=== PATIENT | male | born 1975 | race Caucasian/White ===

== ENCOUNTER 2024-09-30 13:28 | Emergency (ER) | payer OTHER, SELFPAY ==
--- NOTE | ~2024-09-30 | XR_ITS ---
EXAMINATION: XR knee LT min 4V DATE: 09/30/2024 14:42 INDICATION: Left knee pain and swelling post twisting injury TECHNIQUE: Anteroposterior, 2 oblique and crosstable lateral views of the left knee were obtained COMPARISON: None. FINDINGS: Alignment is normal. No fracture. Marginal osteophytes in all 3 compartments of the knee consistent with tricompartmental osteoarthritis. Joint spaces appear relatively preserved although this could be underestimated on nonweightbearing imaging. No joint effusion. Soft tissues are unremarkable. IMPRESSION: 1. Mild tricompartmental osteoarthritis of the left knee. No joint effusion or acute osseous abnormal ity. Reviewed, dictated and finalized at location B. IMPRESSION: 1. Mild tricompartmental osteoarthritis of the left knee. No joint effusion or acute osseous abnormality.
[2024-09-30 13:45] VITALS: BP 131/69; PULSE 64; RESP 16; TEMP 37.2; O2SAT 99
--- NOTE | 2024-09-30 14:07 | ED_ITS ---
HPI - Extremity Injury (Lower) General Chief Complaint: Extremity Injury, Lower Stated Complaint: Left Leg Pain Time Seen by Provider: 09/30/24 14:07 Source: patient Mode of arrival: ambulatory Limitations: no limitations History of Present Illness HPI Narrative: 49 yo M presents with pain and swelling to L knee. Was helping a friend carry a large recliner and states L knee twisted. Ambulatory with slight limp. States pain radiates into calf. distal NV intact. All systems reviewed and negative except as noted above. Related Data Home Medications ?Medication ?Instructions ?Recorded ?Confirmed ?Last Taken ?Type famotidine 40 mg tablet mg 09/30/24 Unknown History losartan 100 tablet 09/30/24 Unknown History mg-hydrochlorothiazide 25 mg tablet sertraline 50 mg tablet mg 09/30/24 Unknown History Allergies Allergy/AdvReac Type Severity Reaction Status Date / Time No Known Allergies Allergy Mild Unverified 10/26/08 15:08 Review of Systems Review of Systems: CONSTITUTIONAL: Denies fever, chills, or sweats. EYES: Denies visual changes, redness, or discharge. ENT: Denies rhinorrhea, congestion, sore throat, or otalgia. CARDIOVASCULAR: Denies chest pain, palpitations, or edema. RESPIRATORY: Denies cough or dyspnea. GASTROINTESTINAL: Denies abdominal pain, nausea, vomiting, or diarrhea. GENITOURINARY: Denies dysuria or hematuria. SKIN: Denies rash or itching. MUSCULOSKELETAL: Denies back pain or myalgia. Reports pain and swelling to left knee NEUROLOGIC: Denies headache, numbness, or weakness. PSYCHIATRIC: Denies anxiety or depression. All other systems reviewed are negative, except as documented in HPI. PMFSH Comments At time of signature, agree with nursing past medical, surgical, social and family history. There is no relevant family history pertinent to the presenting complaint. Exam Narrative: GENERAL: This is a well-nourished, well-developed patient, in no apparent distress. HEAD: normocephalic, atraumatic. EYES: PERRL. Sclera clear/white. Vision is grossly intact. EARS: External ears normal NOSE: External nose normal NECK: Neck supple, non-tender without lymphadenopathy, masses or thyromegaly. CARDIOVASCULAR: Regular rate and rhythm without murmurs, gallops, or rubs. RESPIRATORY: Clear to auscultation. Breath sounds equal bilaterally. No wheezes, rales, or rhonchi. SKIN: warm, Dry, intact with no suspicious lesions or rash, good texture and turgor. NEURO: awake, alert, and oriented to person, place and time. There were no obvious focal neurologic abnormalities. EXTREMITIES: generalized tenderness to anterior and posterior aspect L knee with mild swelling. negative anterior and posterior drawer testing. normal ROM Course Course Level of Care: Express Care Visit Vital Signs Vital signs: Vital Signs Temperature 37.2 C 09/30/24 13:45 Pulse Rate 64 09/30/24 13:45 Respiratory Rate 16 09/30/24 13:45 Blood Pressure 131/69 09/30/24 13:45 Pulse Oximetry 99 09/30/24 13:45 Oxygen Delivery Room Air 09/30/24 13:45 Temperature 37.2 C 09/30/24 13:45 Pulse Rate 64 09/30/24 13:45 Respiratory Rate 16 09/30/24 13:45 Blood Pressure 131/69 09/30/24 13:45 Pulse Oximetry 99 09/30/24 13:45 Oxygen Delivery Room Air 09/30/24 13:45 reviewed MDM - Extremity Injury (Lower) MDM Narrative Medical decision making narrative: x-ray knee is normal. Discussed results with patient. Recommend ibuprofen, rest, ice. Will see his doctor if not improving. Imaging Data My impression: Agree with radiologist Radiologist's impression: EXAMINATION: XR knee LT min 4V DATE: 09/30/2024 14:42 INDICATION: Left knee pain and swelling post twisting injury TECHNIQUE: Anteroposterior, 2 oblique and crosstable lateral views of the left knee were obtained COMPARISON: None. FINDINGS: Alignment is normal. No fracture. Marginal osteophytes in all 3 compartments of the knee consistent with tricompartmental osteoarthritis. Joint spaces appear relatively preserved although this could be underestimated on nonweightbearing imaging. No joint effusion. Soft tissues are unremarkable. IMPRESSION: 1. Mild tricompartmental osteoarthritis of the left knee. No joint effusion or acute osseous abnormality. Discharge Plan Discharge Clinical Impression: Left knee sprain Qualifiers: Encounter type: initial encounter Patient Disposition: Home Condition: Stable Instructions: Knee Sprain (ED) Additional Instructions: the x-ray of your left knee showed mild arthritis. There was no fracture. Take ibuprofen or Tylenol every 6-8 hours as needed for pain. Elevate when at rest. Follow-up with primary care physician if not improving. Patient Language: Israeli Prescriptions: No Action famotidine 40 mg tablet losartan-hydrochlorothiazide 100-25 mg tablet sertraline 50 mg tablet Follow-up/Referrals: Mary Aly [Other] Time of Disposition: 15:09
--- OUTSIDE RECORDS SUMMARY | 2024-09-30 14:32 | XMS_ITS | Encounter Summary ---
Author Organization [facility] Address [address] 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 Unavailable Unavailab le Reason for Visit * Reason Comments Medication Refill Encounter Details Date Type Department Care Team (Late st Contact Info) Description 06/25/2021 Refill [facility] - Primary Care - [place] [address] [place] [address] Gloria Martinez MD [address] [place] [address] Medication Refill Social History Tobacco Use Types Packs/Day Years Used Date Smoking Tobacco: Former Cigarettes 1 5 Smokeless Tobacco: Current Chew Alcohol Use Standard Drinks/Week Comments No 0 (1 standard drink = 0.6 oz pur e alcohol) PHQ-2 Answer Date Recorded Total Score - Questions 1-9 0 10/2019 Sexually Active Control Partners Comments Not Currently Sex and Gender Information Value Date Recorded Sex Assigned at Not on file Legal Sex Male 8:58 PM CDT Gender Identity Not on file Sexual Orientation Not on file documented as of this encounter Miscellaneous Notes * Telephone Encounter - Blu, Milana L, RN - 06/25/2021 7:53 AM ALLERGY SPECIALIST Medication failed the protocol, provider to review and approve the medication order if appropriate. Requested Prescriptions Pending Prescriptions Disp Refills Topiramate 50 MG Tablet [Pharmacy Med Name: TOPIRAMATE 50MG TABLETS] 180 Tablet 3 Sig: TAKE 1 TABLET BY MOUTH TWICE DAILY Not Delegated - Anticonvulsants Excluding Benzodiazepines Protocol Failed - 06/25/2021 5:48 AM Failed - This refill cannot be delegated Passed - Visit with relevant provider in past 12 months or upcoming 90 days Recent Visits Date Type Provider Dept 04/30/21 Office Visit Gloria Martinez MD [facility] 12/01/20 Office Visit Gloria Martinez MD [facility] 09/21/20 Office Visit Gloria Martinez MD [facility] [place] Showing recent visits within past 365 days and meeting all other requirements Future Appointments No visits were found meeting these conditions. Showing future appointments within next 90 days and meeting all other requirements RGY SPECIALIST documented in this encounter Plan of Treatment Not on file documented as of this encounter Visit Diagnoses Diagnosis Obesity, Class III, BMI 40-49.9 (morbid obesity) (HCC) Morbid obesity documented in this encounter Additional Health Concerns Assessment Noted Time PHQ-9 Depression Total Score: 0 03/23/20 20 9:00 AM ALLERGY SPECIALIST documented as of this encounter Care Teams Account Installer Relationship Specialty Start Date End Date Gloria Martinez MD [address] [place] [address] PCP - General Family Medicine 07/09/18 05/29/22 Jen Malave APRN, LEAD DATA ENTRY OPERATOR [address] [place] [address] PCP - General Advanced Practice Nurse 05/30/22 Provider, None [place] PCP - General 11/10/22 08/09/23 Mary Aly, POLISHER AND BUFFER, LEAD DATA ENTRY OPERATOR [address] [place] [address] PCP - General Certified Nurse Practitioner 08/10/23 Holly Grimes, [place]ART[place] Process Specialist Drill Doctor 09/06/24 09/11/24 documented as of this encounter
--- OUTSIDE RECORDS SUMMARY | 2024-09-30 14:32 | XMS_ITS | Encounter Summary ---
Author Organization [facility] Address [address] [place] [address] Phone Care Team Providers Care Supervisor Cook House Name Role Phone Gloria Martinez MD Primary Care Provider [phone] Jen Malave APRN, [facility] Primary Care Provider Provider, None Primary Care Provider UnavailMary Little APRN, [facility] Primary Care Provider + [phone] Holly Grimes NOVELTY WORKER Unavailable Unavailab le Reason for Visit * Reason Comments Medication Refill Encounter Details Date Type Department Care Team (Late st Contact Info) Description 07/24/2021 Refill [facility] - Family Medicine [facility] [address] [place] [address] Gloria Martinez MD [address] [place] [address] Medication Refill Social History Tobacco Use Types [...] encounter Miscellaneous Notes * Telephone Encounter - Saundra Curtis RN - 07/26/2021 8:56 AM CDT Medication failed the protocol, provider to review and approve the medication order if appropriate. Requested Prescriptions Pending Prescriptions Disp Refills sertraline (ZOLOFT) 50 MG Tablet [Pharmacy Med Name: SERTRALINE 50MG TABLETS] 90 Tablet 0 Sig: TAKE 1 TABLET BY MOUTH DAILY SSRI (6 Month Refill Only) Protocol Failed - 07/24/2021 9:20 AM Failed - Has an encounter in the past 6 months with a depression, anxiety, adjustment disorder, OCD, or PTSD visit diagnosis Passed - Visit with relevant provider in past 6 months or upcoming 90 days Recent Visits Date Type Provider Dept 04/30/21 Office Visit Gloria Martinez MD [facility] Showing recent visits within past 182 days and meeting all other requirements Future Appointments No visits were found meeting these conditions. Showing future appointments within next 90 days and meeting all other requirements Passed - Patient has established therapy with SSRI for at least 6 months documented in this encounter Plan of Treatment Not on file documented as of this encounter Visit Diagnoses Diagnosis Depression, unspecified depression type documented in this encounter Additional Health Concerns Assessment Noted Time PHQ-9 Depression Total Score: 0 03/23/20 20 9:00 AM WOOL BROKER documented as of this encounter Care Teams Supervisor Cook House Relationship Specialty Start Date End Date Gloria Martinez MD [address] [place] [address] PCP - General Family Medicine 07/09/18 05/29/22 Jen Malave, WALKING DRAGLINE OPERATOR, BUS GIRL [address] [place] [address] PCP - General Advanced Practice Nurse 05/30/22 Provider, None [place] PCP - General 11/10/22 08/09/23 Mary Aly WALKING DRAGLINE OPERATOR, [employer] GIR[employer] [address] [place] [address] PCP - General Certified Nurse Practitioner 08/10/23 Holly Grimes LSW [place] Mill Washer Assembler [employer] Furniture 09/06/24 09/11/24 documented as of this encounter
--- OUTSIDE RECORDS SUMMARY | 2024-09-30 14:32 | XMS_ITS | Clinical Summary ---
Author Organization [facility] Address [address] [place] [address] Phone Care Team Providers Care Project Specialist Name Role Phone Mary Aly Ariella LOPEZ, GLASS BELT SANDER Primary Care Provider [phone] Allergies No known active allergies Medications Cyanocobalamin (VITAMIN B-12) 5000 MCG TABLET DISPERSIBLEIndi cations:Vitamin B12 deficiency Take 1 Tab by mouth daily. 90 Tab 1 08/29/19 19 Active Additional Information Patient not taking.Reported on 09/05/2024 Aspirin 81 MG TabletIndicatio ns:Obesity, Class III, BMI 40-49.9 (morbid obesity) (HCC) Take 1 Tab by mouth daily. 100 Tab 1 08/05/19 20 Active Additional Information Patient not taking.Reported on 09/05/2024 Niacin (VITAMIN B-3 PO) Take by mouth daily. One tab nightly. Active Cholecalciferol (Vitamin D-3 Super Strength) 50 mcg Tablet Take by mouth. A ctive Topiramate 50 MG TabletIndicatio ns:Obesity, Class III, BMI 40-49.9 (morbid obesity) (HCC) TAKE ONE TABLET BY MOUTH TWICE DAILY 180 Tablet 07/17/19 25 Active sertraline (ZOLOFT) 50 MG TabletIndicatio ns:Depression, unspecified depression type TAKE 1 TABLET BY MOUTH DAILY. 90 Tablet 07/17/19 25 Active losartan potassium-hydro chlorothiazide (HYZAAR) 100-25 MG Tablet TAKE 1 TABLET BY MOUTH DAILY. 90 Tablet 07/18/19 25 Active albuterol 108 (90 Base) MCG/ACT Aerosol Solution take 2 Puffs by inhalation every 6 hours as needed for Wheezing. 18 g 09/04/19 25 Active famotidine (PEPCID) 40 MG Tablet Take 1 Tablet by mouth every evening. 90 Tablet 2 09/06/19 25 Active tiotropium (Spiriva HandiHaler) 18 MCG CapsuleIndicati ons:Chronic bronchitis, unspecified chronic bronchitis type (HCC) take 1 Puff by inhalation daily. 90 Capsule 1 09/06/19 25 Active famotidine (PEPCID) 40 MG Tablet Take 1 Tablet by mouth every evening. 90 Tablet 2 11/12/19 23 025 Discontinu ed(Reorder ) albuterol 108 (90 Base) MCG/ACT Aerosol Solution take 2 Puffs by inhalation every 6 hours as needed for Wheezing. 18 g 01/12/20 24 025 Discontinu ed(Reorder ) tiotropium (Spiriva HandiHaler) 18 MCG CapsuleIndicati ons:Chronic bronchitis, unspecified chronic bronchitis type (HCC) take 1 Puff by inhalation daily. 90 Capsule 1 01/12/20 24 025 Discontinu ed(Reorder ) benzonatate (TESSALON) 100 MG Capsule Take 1 Capsule by mouth 3 times daily as needed for Cough for up to 10 days. 30 Capsule 09/06/19 25 025 Active Problems Problem Noted Date Diagnosed Date GERD (gastroesophageal reflux disease) Chest pain in adult 07/11/2024 Snoring 03/26/2021 Excessive daytime sleepiness 03/26/2021 Dyslipidemia 03/23/2020 Vitamin B12 deficiency 08/28/2018 Hypertension 07/09/2018 Depression 07/09/2018 Vitamin D deficiency 07/09/2018 Chronic bronchitis 07/09/2018 Obesity, Class III, BMI 40-49.9 (morbid obesity) 07/09/2018 Intellectual disability 12/15/2014 Tobacco dependence syndrome 12/15/2014 Sleep apnea, unspecified 12/15/2014 Hyperlipidemia Resolved Problems Problem Noted Date Diagnosed Date Resolved Date Pure hypertriglyceridemia 08/26/2019 Open fracture of toe of right foot 10/12/2018 01/29/2019 Chronic kidney disease 08/28/201808/25 IFG (impaired fasting glucose) 08/28/2018 08/26/2019 Encounters Date Type Department Care Team Description 09/30/2024 Nurse Triage [facility] [address] [place] [phone] Mary Aly APRN, GHAZALA Leg Pain 09/11/2024 Patient Outreach [facility] Orthodontic Lab Technician Management [address] [place] [phone] Holly Grimes DRY PRESS OPERATOR Care Management ([facility]) 09/06/2024 Patient Outreach [facility] Orthodontic Lab Technician Management [address] [place] [id number] Holly Grimes DRY PRESS OPERATOR Care Management (Patient outreach) 09/05/2024 3:00 PM CDT Office Visit [address] [address] Mary Aly, JOHN, GLASS BELT SANDER Financial difficulties (Primary Dx); Chronic bronchitis, unspecified chronic bronchitis type (HCC) Discharge Disposition: Discharged to home or Selfcare 09/05/2024 Travel 09/03/2024 Nurse Triage [facility] [address] [address] Mary Aly APRN, GLASS BELT SANDER Cough 09/03/[address] [address] Mayr Aly APRN, GLASS BELT SANDER Advice Only 08/15/2024 11:10 AM CDT Lab [facility] [place] [address] [place] [address] Lab, [facility] Hypertension, unspecified type; Dyslipidemia; Hyperlipidemia, unspecified hyperlipidemia type; Vitamin D deficiency; Vitamin B12 deficiency Discharge Disposition: Discharged to home or Selfcare 08/15/2024 Results Follow-Up [place] [address] [place] [address] Mary Aly APRN, GLASS BELT SANDER CMP (COMPREHENSIVE METABOLIC PANEL), HEMOGLOBIN A1C W/ ESTIMATED GLUCOSE, LIPID PANEL, Additional followed-up results: 4 08/15/2024 Travel 07/22/2024 1:30 PM CDT Office Visit Formerly named [facility] [address] [place] [address] Mary Aly APRN, GHAZALA Other chest pain (Primary Dx); Hypertension, unspecified type; Dyslipidemia; Hyperlipidemia, unspecified hyperlipidemia type; Vitamin D deficiency; Vitamin B12 deficiency Discharge Disposition: Discharged to home or Selfcare 07/22/2024 Travel 07/17/2024 Refill Formerly named [facility] [address] [place] [address] Mary Aly APRN, GHAZALA Medication Refill 07/15/2024 Refill Formerly named [facility] [address] [place] [address] Mary Aly APRN, GLASS BELT SANDER Medication Refill 07/11/2024 8:23 PM CDT - 07/12/2024 5:13 PM CDT Hospital Encounter [facility] [address] [address] Gustavo Singh MD Carmicheal, Nia Schilling MD Chest pain in adult Discharge Disposition: Discharged to home or Selfcare 07/11/2024 Travel from Last 3 Months Immunizations Immunization Administration Dates Next Due Influenza Vaccine 03/22/2018 Influenza Vaccine, Quadrivalent, PF 04/17,03/17/2020,03/22/2019,2017,04/07/2017 Pneumococcal Vaccine Adult - 23 Valent 03/22/2019 TDAP Vaccine 10/12/2018 Family History Medical History Relation Name Comments Heart Attack Father Cancer Maternal Aunt breast Cancer Mother unknown type Relation Name Status Comments Father Maternal Aunt Mother Social History Tobacco Use Types Packs/Day Years Used Date Smoking Tobacco: Former Cigarettes 1 5 Smokeless Tobacco: Current Chew Tobacco Cessation:Ready to Q uit: Not Asked; Counseling Given: Not Answered Alcohol Use Standard Drinks/Week Comments No 0 (1 standard drink = 0.6 oz pur e alcohol) [facility] Utilities Answer Date Recorded In the past 12 months has th e electric, gas, oil, or water company threatened to shut off services in your home? Yes 09/11/2024 Social Connection and Isolation Panel Answer Date Recorded In a typical week, how many times do you talk on the phone with family, friends, or neighbors? Three times a week 09/11/2024 How often do you get togethe r with friends or relatives? More than three times a week 09/11/2024 How often do you attend chur ch or lutheran services? Never 09/11/2024 Do you belong to any clubs o r organizations such as sabianism groups, unions, fraternal or athletic groups, or school groups? No 09/11/2024 How often do you attend meet ings of the clubs or organizations you belong to? Never 09/11/2024 Are you , , di vorced, , never , or living with a partner? 09/11/2024 AUDIT-C Answer Date Recorded Q1: How often do you have a drink containing alc ohol? Monthly or less 09/11/2024 Q2: How many drinks containi ng alcohol do you have on a typical day when you are drinking? 1 or 2 09/11/2024 Q3: How often do you have si x or more drinks on one occasion? Never 09/11/2024 Overall Financial Resource Strain (CARDIA) Answe r Date Recorded How hard is it for you to pa y for the very basics like food, housing, medical care, and heating? Not hard at all 09/11/2024 PHQ-2 Answer Date Recorded Total Score - Questions 1-9 0 08/16 [facility] [place] [facility] [employer] - Occupational Stress Questionnaire Answer Date Recorded Do you feel stress - tense, restless, nervous, or anxious, or unable to sleep at night because your mind is troubled all the time - these days? Not at all 09/11/2024 Exercise Vital Sign Answer Date Recorde d On average, how many days pe r week do you engage in moderate to strenuous exercise (like a brisk walk)? 2 days 09/11/2024 On average, how many minutes do you engage in exercise at this level? 30 min 09/11/2024 Hunger Vital Sign Answer Date Recorded Within the past 12 months, y ou worried that your food would run out before you got the money to buy more. Never true 09/12/19 25 Within the past 12 months, t he food you bought just didn't last and you didn't have money to get more. Never true 09/11/2024 PRAPARE - Transportation Answer Date Re corded In the past 12 months, has l ack of transportation kept you from medical appointments or from getting medications? No 08/16 In the past 12 months, has l ack of transportation kept you from meetings, work, or from getting things needed for daily living? No 09/11/2024 Housing Stability Vital Sign Answer Héctor e Recorded In the last 12 months, was t here a time when you were not able to pay the mortgage or rent on time? No 09/11/2024 In the past 12 months, how m any times have you moved where you were living? 1 09/11/2024 At any time in the past 12 m [facility], were you homeless or living in a usp (including now)? No 09/11/2024 Sexually Active Control Partners Comments Not Currently Sex and Gender Information Value Date Recorded Sex Assigned at Not on file Legal Sex Male 8:58 PM CDT Gender Identity Not on file Sexual Orientation Not on file Last Filed Vital Signs Vital Sign Reading Time Taken Comments Blood Pressure 122/68 09/05/2024 2:55 PM CDT Pulse 74 09/05/2024 2:55 PM CDT Temperature 36.9 C (98.4 F) 09/05/2024 2:55 PM CDT Respiratory Rate 20 09/05/2024 2:55 PM CDT Oxygen Saturation 96% 09/05/2024 2:55 PM CDT Inhaled Oxygen Concentration - - Weight 115.2 kg (254 lb) 09/05/2024 2:55 PM CDT Height 170.2 cm (5' 7) 09/05/2024 2:55 PM CDT Body Mass Index 39.78 09/05/2024 2:55 PM CDT Plan of Treatment Health Maintenance Due Date Last Done Comments Cologuard 2020 Immunochemical Fecal Occult Blood 2020 Influenza Immunization (Season Ended) 2024 04/30/2021, 03/17/2020, 03/22/2019, Additional history exists Td Immunization Every 10 Years (Adults With 1 Tdap) 10/12/2028 10/12/2018 Colonoscopy 04/26/2031 04/26/2021, 04/26/2021 Colorectal Cancer Screening 04/26/2031 Respiratory Syncytial Virus (RSV) Immunization (Adult) (1 - 1-dose 75+ series) 2050 Pneumococcal Immunization Combined Discontinued 03/22/2019 SARS-COV-2 Immunization Discontinued 09/27/2020, 09/06 Hepatitis C Virus (HCV) Screening Completed 08/23/2023 Hepatitis B Immunization Discontinued Human Papillomavirus (HPV) Immunization Aged Out No longer eligible based on patient's age to complete this topic Meningococcal Immunization (ACWY) Aged Out No longer eligible based on patient's age to complete this topic Rotavirus Immunization Aged Out No lo nger eligible based on patient's age to complete this topic Procedures Procedure Name Priority Date/Time Associated Diagnosis Comments THYROID SCREEN WITH REFLEX Routine 08/15/2024 9:33 AM CDT Hypertension, unspecified type Dyslipidemia Hyperlipidemia, unspecified hyperlipidemia type Vitamin D deficiency Vitamin B12 deficiency CBC WITH AUTO DIFFERENTIAL Routine 08/15/2024 9:33 AM CDT Hypertension, unspecified type Dyslipidemia Hyperlipidemia, unspecified hyperlipidemia type Vitamin D deficiency Vitamin B12 deficiency VITAMIN B12 Routine 08/15/2024 9:33 AM CDT Vitamin B12 deficiency VITAMIN D, 25 HYDROXY TOTAL Routine 08/15/2024 9:33 AM CDT Vitamin D deficiency THYROID SCREEN WITH REFLEX Routine 08/15/2024 9:33 AM CDT Hypertension, unspecified type Dyslipidemia Hyperlipidemia, unspecified hyperlipidemia type Vitamin D deficiency Vitamin B12 deficiency LIPID PANEL Routine 08/15/2024 9:33 AM CDT Hypertension, unspecified type Dyslipidemia Hyperlipidemia, unspecified hyperlipidemia type Vitamin D deficiency Vitamin B12 deficiency HEMOGLOBIN A1C W/ ESTIMATED GLUCOSE Routine 08/15/2024 9:33 AM CDT Hypertension, unspecified type Dyslipidemia Hyperlipidemia, unspecified hyperlipidemia type Vitamin D deficiency Vitamin B12 deficiency CMP (COMPREHENSIVE METABOLIC PANEL) Routine 08/15/2024 9:33 AM CDT Hypertension, unspecified type Dyslipidemia Hyperlipidemia, unspecified hyperlipidemia type Vitamin D deficiency Vitamin B12 deficiency COMPLETE BLOOD COUNT (CBC) WITH DIFF Routine 08/15/2024 9:33 AM CDT Hypertension, unspecified type Dyslipidemia Hyperlipidemia, unspecified hyperlipidemia type Vitamin D deficiency Vitamin B12 deficiency NM CARD MULTI SPECT WITH WALL MOTION AND EJECTION FRACTION STAT 07/12/2024 3:25 PM CDT ADULT CV STRESS PHARMACOLOGIC W NUC MED STAT 07/12/2024 3:11 PM CDT ADULT TRANS THORACIC ECHO 2D COMPLT W CONT STAT 07/12/2024 10:36 AM CDT CBC WITH AUTO DIFFERENTIAL STAT 07/12/2024 4:44 AM CDT COMPLETE BLOOD COUNT (CBC) WITH DIFF STAT 07/12/2024 4:44 AM CDT BASIC METABOLIC PANEL W/ CALCIUM TOTAL STAT 07/12/2024 4:44 AM CDT RHYTHM STRIP 07/12/2024 12:00 AM CDT RHYTHM STRIP 07/12/2024 12:00 AM CDT TROPONIN I, HIGH SENSITIVITY (HSTRP) STAT 07/11/2024 11:14 PM CDT TROPONIN I, HIGH SENSITIVITY (HSTRP) STAT 07/11/2024 10:06 PM CDT XR CHEST SINGLE VIEW PORTABLE STAT 07/11/2024 8:56 PM CDT CBC WITH AUTO DIFFERENTIAL STAT 07/11/2024 8:31 PM CDT TROPONIN I, HIGH SENSITIVITY (HSTRP) STAT 07/11/2024 8:31 PM CDT CMP (COMPREHENSIVE METABOLIC PANEL) STAT 07/11/2024 8:31 PM CDT COMPLETE BLOOD COUNT (CBC) WITH DIFF STAT 07/11/2024 8:31 PM CDT EKG 12 LEAD STAT 07/11/2024 8:21 PM CDT EKG SCAN 07/11/2024 12:00 AM CDT HEPATITIS C ANTIBODY Routine 08/23/2023 12:26 PM CDT Encounter for hepatitis C screening test for low risk patient [facility] COLONOSCOPY 04/26/2021 12:00 AM GAMEWELL OPERATOR from Last 3 Months or Most Recently Relevant to Health Maintenance Results * VITAMIN D, 25 HYDROXY TOTAL (08/15/2024 9:33 AM CDT) VITAMIN D, 25 HYDROX 33.6 ng/mL 08/15/2024 1:34 PM CDT [facility] Blood Venipuncture / Unknown 08/15/2024 9:33 AM CDT 08/15/2024 9:33 AM CDT Narrative [facility] - 08/15/2024 1:34 PM CDT Published reference ranges for Vitamin D vary depending on time and place and method of testing, and on patient's age, sex, ethnicity and levels of other measured analytes such as parathormone, calcium and phosphorus. The result should be evaluated in conjunction with clinical findings and suspicions. [place] [facility] Clinical Practice Guidelines: Status Vitamin D levels (ng/mL) Deficient <=20 At risk of inadequacy 21-29 Sufficient 30-100 Centers of Disease Control and Prevention Guidelines: Status Vitamin D levels (ng/mL) Deficient <13 At risk of inadequacy 13-19 Sufficient 20-50 Possibly harmful >50 References: [place] [employer], 2010 Dietary reference intakes for calcium and vitamin D. [place]: The National Academies Press. Luc M, Briseyda N, Chucky KASPER, et al., Evaluation, treatment, and prevention of Vitamin D deficiency: an Endocrinology Clinical Practice Guideline. JCEM 2011 96: 7 2274-0278. Cathie A, Chevy C, Tristin D, et al., Vitamin D Status: [place], , [facility] data brief, no. 59, MD Marshal: [facility] Statistics. 2011. us Mary Krishnan Jermain PODODERMATOLOGIST, GLASS BELT SANDER CHEMISTRY ORDERABLES Final Result Performing Organization Address City/[facility]/ZIP Co de Phone Number [facility] [address] [place] [address] * THYROID SCREEN WITH REFLEX (08/15/2024 9:33 AM CDT) TSH 1.093 0.300 - 5.000 mIU/L 08/15/2024 1:25 PM CDT [facility] Blood Venipuncture / Unknown 08/15/2024 9:33 AM CDT 08/15/2024 9:33 AM CDT us Mary Ariella Aly PODODERMATOLOGIST, GLASS BELT SANDER CHEMISTRY ORDERABLES Final Result Performing Organization Address City/[facility] Co de Phone Number [facility] [address] [place] [address] * HEMOGLOBIN A1C W/ ESTIMATED GLUCOSE (08/15/2024 9:33 AM CDT) HGB-A1C 5.1 4.0 - 6.0 % 08/15/2024 1:03 PM CDT [facility] Est Average Glucose 99.7 mg/dL 08/15/2024 1:03 PM CDT [facility] Blood Venipuncture / Unknown 08/15/2024 9:33 AM CDT 08/15/2024 9:33 AM CDT Narrative [facility] - 08/15/2024 1:03 PM CDT HEMOGLOBIN A1C: DIABETIC PATIENTS: WELL-CONTROLLED: 6.2 - 7.0 INTERMEDIATE WELL-CONTROLLED: 7.0 - 9.0 POORLY-CONTROLLED: >9.0 Specimens containing greater than 5% of Hemoglobin F may result in lower than expected % HbA1C results. us Mary Aly APRN, GLASS BELT SANDER CHEMISTRY ORDERABLES Final Result [facility] [address] [place] [address] * (ABNORMAL) CBC WITH AUTO DIFFERENTIAL (08/15/2024 9:33 AM CDT) Only the most recent of3 resultswithin the time period is included. WBC 8.05 4.00 - 12.00 10(3)/mcL 08/15/2024 12:33 PM CDT [facility] RBC 5.23 4.40 - 5.80 10(6)/mcL 08/15/2024 12:[address] [facility] HEMOGLOBIN (HGB) 15.0 13.0 - 16.5 g/dL 08/15/2024 12:33 PM CDT [facility] HEMATOCRIT (HCT) 46.1 38.0 - 50.0 % 08/15/2024 12:33 PM CDT [facility] MCV 88.1 82.0 - 96.0 fL 08/15/2024 12:33 PM CDT [facility] MCH 28.7 26.0 - 32.0 pg 08/15/2024 12:[address] [facility] MCHC 32.5 31.0 - 36.0 g/dL 08/15/2024 12:33 PM CDT [facility] PLATELET COUNT 248 140 - 440 10(3)/mcL 08/15/2024 12:33 PM CDT [facility] RDW 12.5 11.8 - 15.5 % 08/15/2024 12:33 PM CDT [facility] MPV 10.7 8.0 - 12.6 fL 08/15/2024 12:33 PM CDT [facility] NEUTROPHILS 69.7(H) 40.0 - 68.0 % 08/15/2024 12:33 PM CDT [facility] LYMPHOCYTES 21.5 19.0 - 49.0 % 08/15/2024 12:33 PM CDT [facility] MONOCYTES 5.8 3.0 - 13.0 % 08/15/2024 12:33 PM CDT [facility] EOSINOPHILS 2.1 0.0 - 8.0 % 08/15/2024 12:33 PM CDT [facility] BASOPHILS 0.9 0.0 - 1.0 % 08/15/2024 12:33 PM CDT [facility] ABSOLUTE NEUTROPHILS 5.61(H) 1.40 - 5.30 10(3)/mcL 08/15/2024 12:33 PM CDT [facility] ABSOLUTE LYMPHOCYTES 1.73 0.90 - 3.30 10(3)/[facility] 08/15/2024 12:33 PM CDT [facility] ABSOLUTE MONOCYTES 0.47 0.10 - 0.90 10(3)/[facility] 08/15/2024 12:33 PM CDT [facility] ABSOLUTE EOSINOPHIL 0.17 0.00 - 0.50 10(3)/[facility] 08/15/2024 12:33 PM CDT [facility] ABSOLUTE BASOPHILS 0.07 0.00 - 0.10 10(3)/[facility] 08/15/2024 12:33 PM CDT [facility] NRBC PER 100 WBC 0 08/16/19 12:33 PM CDT [facility] Blood Venipuncture / Unknown 08/15/2024 9:33 AM CDT 08/15/2024 9:33 AM CDT us Mary Aly PODODERMATOLOGIST, GLASS BELT SANDER HEMATOLOGY ORDERABLES Lucy l Result [facility] [address] [place] [address] * VITAMIN B12 (08/15/2024 9:33 AM CDT) VITAMIN B12 241 213 - 816 pg/mL 08/15/2024 1:34 PM CDT [facility] Blood Venipuncture / Unknown 08/15/2024 9:33 AM CDT 08/15/2024 9:33 AM CDT us Mayr Aly PODODERMATOLOGIST, GLASS BELT SANDER CHEMISTRY ORDERABLES Final Result [facility] [address] [place] [address] * (ABNORMAL) LIPID PANEL (08/15/2024 9:33 AM CDT) CHOLESTEROL 151 <200 mg/dL 08/15/2024 1:[address] [facility] TRIGLYCERIDES 124 <150 mg/dL 08/15/2024 1:12 PM CDT [facility] HDL CHOLESTEROL 31(L) >40 mg/dL 1:[address] [facility] LDL 95 <130 mg/dL 08/15/2024 1:[address] [facility] VLDL 25 10 - 50 mg/dL 08/15/2024 1:[address] [facility] CHOL/HDL RATIO 4.9(H) 0.0 - 4.4 08/15/2024 1:[address] [facility] NON-HDL CHOLESTEROL 120 <130 mg/dL 08/15/2024 1:[address] [facility] IS THE PATIENT REQUIRED TO BE FASTING? Yes 08/15/2024 1:[address] [facility] HAS THE PATIENT BEEN FASTING? Yes 08/15/2024 1:[address] [facility] Blood Venipuncture / Unknown 08/15/2024 9:33 AM CDT 08/15/2024 9:33 AM CDT us Mary Aly PODODERMATOLOGIST, GLASS BELT SANDER CHEMISTRY ORDERABLES Final Result [facility] [address] [place] [address] * (ABNORMAL) CMP (COMPREHENSIVE METABOLIC PANEL) (08/15/2024 9:33 AM CDT) Only the most recent of2 resultswithin the time period is included. SODIUM 135(L) 136 - 145 mmol/L 08/15/2024 1:[address] [facility] POTASSIUM 4.3 3.5 - 5.1 mmol/L 08/15/2024 1:[address] [facility] CHLORIDE 103 98 - 107 mmol/L 08/15/2024 1:[address] [facility] CO2, VENOUS 26 22 - 30 mmol/L 08/15/2024 1:[address] [facility] ANION GAP 10.3 <18.0 mmol/L 08/15/2024 1:[address] [facility] GLUCOSE 92 70 - 99 mg/dL 08/15/2024 1:[address] [facility] BUN 10 9 - 21 mg/dL 08/15/2024 1:[address] [facility] CREATININE, BLOOD 1.23 0.70 - 1.30 mg/dL 08/15/2024 1:[address] [facility] BUN/CREATININE RATIO 8(L) 12 - 20 ratio 08/15/2024 1:[address] [facility] TOTAL PROTEIN 7.4 6.0 - 8.0 g/dL 08/15/2024 1:[address] [facility] ALBUMIN 4.3 3.5 - 5.0 g/dL 08/15/2024 1:[address] [facility] A/G RATIO 1.4 1.0 - 2.2 08/15/2024 1:[address] [facility] CALCIUM 9.5 8.7 - 10.5 mg/dL 08/15/2024 1:12 PM CDT [facility] T BILI 0.8 0.2 - 1.2 mg/dL 08/15/2024 1:12 PM CDT [facility] SGOT (AST) 22 <43 U/L 08/15/2024 1:12 PM CDT [facility] SGPT (ALT) 14 <56 U/L 08/15/2024 1:12 PM CDT [facility] ALKALINE PHOSPHATASE 59 40 - 150 U/L 08/15/2024 1:12 PM CDT [facility] IS THE PATIENT REQUIRED TO BE FASTING? No 08/15/2024 1:12 PM CDT [facility] GFR, ESTIMATED >60 >=60 08/15/2024 1:12 PM CDT [facility] Comment: Creatinine Clearance is the preferred criteria for selecting drug dose adjustments in renally impaired patients. The GFR is provided as additional pertinent clinical information. GFR is reported in mL/min/1.73 sq m. Calculation based on the Chronic Kidney Disease Epidemiology Collaboration (CKD- EPI) equation refit without adjustment for race. GFR, EST. >60 >=60 025 1:12 PM CDT [facility] GFR, EST. NONAFRICAN >60 >=60 08/15/2024 1:[address] [facility] Blood Venipuncture / Unknown 08/15/2024 9:33 AM CDT 08/15/2024 9:33 AM CDT us Mary Aly PODODERMATOLOGIST, GLASS BELT SANDER CHEMISTRY ORDERABLES Final Result [facility] [address] [place] [address] * NM CARD MULTI SPECT WITH WALL MOTION AND EJECTION FRACTION (07/12/2024 3:25 PM CDT) Anatomical Region Laterality Modality CARDIO N/A Nuclear Medicine 07/12/2024 3:49 PM CDT Impressions 07/12/2024 3:52 PM CDT IMPRESSION: 1. Normal myocardial perfusion. 2. No scintigraphic evidence of myocardial ischemia. 3. Normal left ventricular ejection fraction poststress. 4. Normal left ventricular wall motion. Narrative 07/12/2024 3:52 PM CDT EXAM DESCRIPTION: NM CARD MULTI SPECT WITH WALL MOTION AND EJECTION FRACTION REASON FOR STUDY: Central stabbing chest pain for 2 days. RADIOPHARMACEUTICAL: Rest: 11.4 mCi Tc-99m tetrofosmin via a right antecubital IV site. Stress: 32.5 mCi Tc-99m tetrofosmin via a right antecubital IV site. TECHNIQUE: Standard myocardial perfusion SPECT images were obtained after resting tracer injection. Subsequently, an intravenous infusion of 0.4 mg Lexiscan was performed. Standard myocardial perfusion SPECT images were obtained after tracer injection at the peak effect of the drug. COMPARISON: None. FINDINGS: Image quality is adequate at rest and adequate at stress. There is no reversible perfusion defect. There is diminished activity 180 degrees opposition of the anteroseptal and lateral wall on the post-stress images, this is a larger area on the rest images in the pattern is typical of attenuation artifact. The left ventricular cavity size is normal. Gated tomographic images demonstrate normal wall motion and wall thickening with a left ventricular ejection fraction of 74% poststress (normal >45%). THIS IS AN ELECTRONICALLY VERIFIED FINAL REPORT 07/12/2024 3:49 PM - Electronically signed by Ravi Newton M.D. CH: Report ID: [id number] Reading Location: [id number] Procedure Note Ravi Newton Jr., MD - 07/12/2024 EXAM DESCRIPTION: NM CARD MULTI SPECT WITH WALL MOTION AND EJECTION FRACTION REASON FOR STUDY: Central stabbing chest pain for 2 days. RADIOPHARMACEUTICAL: Rest: 11.4 mCi Tc-99m tetrofosmin via a right antecubital IV site. Stress: 32.5 mCi Tc-99m tetrofosmin via a right antecubital IV site. TECHNIQUE: Standard myocardial perfusion SPECT images were obtained after resting tracer injection. Subsequently, an intravenous infusion of 0.4 mg Lexiscan was performed. Standard myocardial perfusion SPECT images were obtained after tracer injection at the peak effect of the drug. COMPARISON: None. FINDINGS: Image quality is adequate at rest and adequate at stress. There is no reversible perfusion defect. There is diminished activity 180 degrees opposition of the anteroseptal and lateral wall on the post-stress images, this is a larger area on the rest images in the pattern is typical of attenuation artifact. The left ventricular cavity size is normal. Gated tomographic images demonstrate normal wall motion and wall thickening with a left ventricular ejection fraction of 74% poststress (normal >45%). THIS IS AN ELECTRONICALLY VERIFIED FINAL REPORT 07/12/2024 3:49 PM - Electronically signed by Ravi Newton M.D. CH: Report ID: [id number] Reading Location: [place] [address] IMPRESSION: 1. Normal myocardial perfusion. 2. No scintigraphic evidence of myocardial ischemia. 3. Normal left ventricular ejection fraction poststress. 4. Normal left ventricular wall motion. us Kira Ji APRN, GHAZALA IMG NM CARDIAC NI ORDERAB LES Final Result * ADULT CV STRESS PHARMACOLOGIC W NUC MED (07/12/2024 3:11 PM CDT) Anatomical Region Laterality Modality CARDIO N/A Electrocardiogra phy Narrative 07/12/2024 4:37 PM CDT Non-Imaging Stress Test Patient Name MACIAS FERNY Herman 1975 Patient ID (UPI) [id number] Indications: Chest pain. Study Date07/12/2024 Type of Study: Non-Imaging Stress Test: Pharmacological. Conclusions Rest ECG Normal sinus rhythm. Standing HR:61 bpmStanding BP:149/[address] mmHg [address] ECG No ST segment changes diagnostic of ischemia.Please refer to nuclear stress test results for full details Symptoms No chest pain. Stress Stress Type - Protocol:Pharmacologic - Peak HR: 116 bpm [id number] Peak BP: 149/96 mmHg Predicted HR: 171 bpm % of predicted HR: 68 Test Duration: 6:00 min Reason for Termination: Completed Demographics Age 49 Gender Male Race Height 67.01 in. Weight 264 lbs. 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 Study Date07/12/2024 Type of Study: Non-Imaging Stress Test: Pharmacological. Conclusions Rest ECG Normal sinus rhythm. Standing HR:61 bpmStanding BP:149/96 mmHg Results ECG No ST segment changes diagnostic of ischemia.Please refer to nuclear stress test results for full details Symptoms No chest pain. Stress Stress Type - Protocol:Pharmacologic - Peak HR: 116 bpm [id number] Peak BP: 149/96 mmHg Predicted HR: 171 bpm % of predicted HR: 68 Test Duration: 6:00 min Reason for Termination: Completed Demographics Age 49 Gender Male Race Height 67.01 in. Weight 264 lbs. BMI 41.34 kg/m^2 Stress Credit Risk Associate Room [facility] Nurse [place] Miranda Interpreting Hiwot Aguero Referring Physician Physician us Kira Ji APRN, GLASS BELT SANDER IMG STRESS Final Res ult * ADULT TRANS THORACIC ECHO 2D COMPLT W CONT (07/12/2024 10:36 AM CDT) AV Peak Grad mmHg 13.1 mmHg RESULTING AGENCY Mean Aortic Valve Gradient (MAVG) 7 mmHg RESULTING AGENCY LV end charmaine diam cm 5.4 cm RESULTING AGENCY LV end sys diam cm 2.9 cm RESULTING AGENCY Aortic Root Diam cm 2.6 cm RESULTING AGENCY LA vol index ml/m2 27 ml/m2 RESULTING AGENCY LVOT Peak Andrea m/sec 1.26 m/sec RESULTING AGENCY AV Peak Andrea m/sec 1.81 m/sec RESULTING AGENCY MV Mean Grad mmHg 1 mmHg RESULTING AGENCY E/A Ratio 1.13 RESULTING AGENCY E/E' 7.1 RESULTING AGENCY AV Area (VTI) cm2 2.02 cm2 RESULTING AGENCY SEPTUM DIASTOLIC CM 0.9 cm RESULTING AGENCY PW DIASTOLIC CM 1 cm RESU LTING AGENCY LA VOLUME 60.7 ml RESULTING AGENCY LV EF(estimated)% 58 RESULTING AGENCY Anatomical Region Laterality Modality CARDIO N/A Ultrasound Narrative 07/13/2024 2:01 PM CDT Transthoracic Echocardiography Report (TTE) Patient name AIDA Herman 1975 Patient ID (UPI) [id number] Indications: Chest pain. 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 Priority:STATHR: 57 bpmBP: 120/67 mmHg Conclusions Summary -Normal LV size, thickness, diastolic and systolic function. Estimated LVEF 55-60% - High normal right ventricular cavity size and normal systolic function. - No hemodynamically significant valvular abnormalities Findings Mitral Valve The mitral valve is normal. There is no evidence of mitral stenosis. There is no significant mitral regurgitation. Aortic Valve The aortic valve is trileaflet with normal leaflet excursion. There is no evidence of aortic valve stenosis. There is no significant aortic valve insufficiency. Tricuspid Valve The tricuspid valve is normal. There is no evidence of tricuspid stenosis. There is no significant tricuspid regurgitation. There is no evidence of pulmonary hypertension. Pulmonic Valve The pulmonic valve structure appears normal. There is no evidence of pulmonic stenosis. There is no significant pulmonic valve regurgitation. Left Atrium The left atrium size is normal. Left Ventricle -Normal LV size, thickness, diastolic and systolic function. Estimated LVEF 55-60% Right Atrium The right atrium size is normal. Right Ventricle - High normal right ventricular cavity size and normal systolic function. Pericardial Effusion The pericardium is normal. There is no pericardial effusion visualized. Miscellaneous Aortic root and proximal ascending aorta are normal in size. Atrial septum appears intact. IVC is normal in size and respiratory response. Aortic arch appears normal. Valves Mitral Valve Peak E-Wave: 0.88 m/s Area (continuity): 3.05 cm^2 Peak A-Wave: 0.78 m/s Mean Velocity: 0.39 m/s Peak Gradient: 3.14 mmHg Mean Gradient: 1 mmHg Deceleration Time: 187 msec Tissue Doppler E' Velocity: 0.12 m/s E/E':7.1 E/A Ratio: 1.13 E/Lat E': 7.1 E/Med E':7.2 Aortic Valve Area (continuity): 2.02 cm^2 Mean Velocity: 1.18 m/s Area (VTI):2.17 cm^2 Mean Gradient: 7 mmHg Peak Velocity: 1.81 m/s AV VTI: 39.3 cm Peak Gradient: 13.1 mmHg Tricuspid Valve Peak E-Wave: 0.58 m/s Peak Gradient: 1.35 mmHg Pulmonic Valve Peak Velocity: 1.03 m/s Mean Velocity: 0.74 m/s Peak Gradient: 4.24 mmHg Mean Gradient: 2 mmHg LVOT Peak Velocity: 1.26 m/s Mean Velocity: 0.79 m/s Peak Gradient: 6 mmHg Mean Gradient: 3 mmHg LVOT Diameter: 2 cm LVOT VTI: 27.1 cm Stroke Volume: 85 ml Stroke Volume Index: 37.28 ml/m^2 Structures Left Ventricle Diastolic Dimension: 5.4 cm Systolic Dimension: 2.9 cm Septum Diastolic: 0.9 cm Septum Systolic: 1.4 cm PW Diastolic: 1 cm PW Systolic: 2.1 cm Diastolic Length: 35.4 cm Systolic Length: 17.2 cm EF Calculated: 70.62% CI: 2.13 l/min*m^2 CO: 4.85 l/min RWT: 0.37 LV EDV: 146 ml FS: 46.3 % LV EDV Index: 64 m^2 LV Length: 8.05 cm LV ESV: 42.9 ml LVOT Diameter: 2 cm LV ESV Index: 19 m^2 Right Ventricle RVOT (PLAX) diameter:3.3 cm Tissue Doppler RV S': 17 TAPSE: 2.48 cm Left Atrium LA Systolic Pressure: 10.86 mmHg LA Area: 18.5 cm^2 LA Volume: 60.7 ml LA Index: 27ml/m^2 Right Atrium RA Area: 18.5 cm^2 Great Vessels Aorta Ascending Aorta: 2.7 cm Aorta Root:2.6 cm Ascending Aorta Index:1.18 cm/m^2 Demographics Age 49 Gender Male Race Height 67.01 in. Weight 264 lbs. BMI (BSA) 41.34 kg/m^2 (2.28 m^2) Alarm Installation Technician Waqar Angelique Room 236-01 R Interpreting Hiwot Referring Physician More Physician Procedure Note More Mi MD - 07/13/2024 Transthoracic Echocardiography Report (TTE) Patient name AIDA Corey Virgil 1975 Patient ID (UPI) [id number] Indications: Chest pain. 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 Priority:STATHR: 57 bpmBP: 120/67 mmHg Conclusions Summary -Normal LV size, thickness, diastolic and systolic function. Estimated LVEF 55-60% - High normal right ventricular cavity size and normal systolic function. - No hemodynamically significant valvular abnormalities Findings Mitral Valve The mitral valve is normal. There is no evidence of mitral stenosis. There is no significant mitral regurgitation. Aortic Valve The aortic valve is trileaflet with normal leaflet excursion. There is no evidence of aortic valve stenosis. There is no significant aortic valve insufficiency. Tricuspid Valve The tricuspid valve is normal. There is no evidence of tricuspid stenosis. There is no significant tricuspid regurgitation. There is no evidence of pulmonary hypertension. Pulmonic Valve The pulmonic valve structure appears normal. There is no evidence of pulmonic stenosis. There is no significant pulmonic valve regurgitation. Left Atrium The left atrium size is normal. Left Ventricle -Normal LV size, thickness, diastolic and systolic function. Estimated LVEF 55-60% Right Atrium The right atrium size is normal. Right Ventricle - High normal right ventricular cavity size and normal systolic function. Pericardial Effusion The pericardium is normal. There is no pericardial effusion visualized. Miscellaneous Aortic root and proximal ascending aorta are normal in size. Atrial septum appears intact. IVC is normal in size and respiratory response. Aortic arch appears normal. Valves Mitral Valve Peak E-Wave: 0.88 m/s Area (continuity): 3.05 cm^2 Peak A-Wave: 0.78 m/s Mean Velocity: 0.39 m/s Peak Gradient: 3.14 mmHg Mean Gradient: 1 mmHg Deceleration Time: 187 msec Tissue Doppler E' Velocity: 0.12 m/s E/E':7.1 E/A Ratio: 1.13 E/Lat E': 7.1 E/Med E':7.2 Aortic Valve Area (continuity): 2.02 cm^2 Mean Velocity: 1.18 m/s Area (VTI):2.17 cm^2 Mean Gradient: 7 mmHg Peak Velocity: 1.81 m/s AV VTI: 39.3 cm Peak Gradient: 13.1 mmHg Tricuspid Valve Peak E-Wave: 0.58 m/s Peak Gradient: 1.35 mmHg Pulmonic Valve Peak Velocity: 1.03 m/s Mean Velocity: 0.74 m/s Peak Gradient: 4.24 mmHg Mean Gradient: 2 mmHg LVOT Peak Velocity: 1.26 m/s Mean Velocity: 0.79 m/s Peak Gradient: 6 mmHg Mean Gradient: 3 mmHg LVOT Diameter: 2 cm LVOT VTI: 27.1 cm Stroke Volume: 85 ml Stroke Volume Index: 37.28 ml/m^2 Structures Left Ventricle Diastolic Dimension: 5.4 cm Systolic Dimension: 2.9 cm Septum Diastolic: 0.9 cm Septum Systolic: 1.4 cm PW Diastolic: 1 cm PW Systolic: 2.1 cm Diastolic Length: 35.4 cm Systolic Length: 17.2 cm EF Calculated: 70.62% CI: 2.13 l/min*m^2 CO: 4.85 l/min RWT: 0.37 LV EDV: 146 ml FS: 46.3 % LV EDV Index: 64 m^2 LV Length: 8.05 cm LV ESV: 42.9 ml LVOT Diameter: 2 cm LV ESV Index: 19 m^2 Right Ventricle RVOT (PLAX) diameter:3.3 cm Tissue Doppler RV S': 17 TAPSE: 2.48 cm Left Atrium LA Systolic Pressure: 10.86 mmHg LA Area: 18.5 cm^2 LA Volume: 60.7 ml LA Index: 27ml/m^2 Right Atrium RA Area: 18.5 cm^2 Great Vessels Aorta Ascending Aorta: 2.7 cm Aorta Root:2.6 cm Ascending Aorta Index:1.18 cm/m^2 Demographics Age 49 Gender Male Race Height 67.01 in. Weight 264 lbs. BMI (BSA) 41.34 kg/m^2 (2.28 m^2) Alarm Installation Technician Zavaleta Angelique Room 236-01 R [facility] Hiwot Referring Physician More Physician us Kira Ji PODODERMATOLOGIST, GLASS BELT SANDER IMG ECHO ORDERABLES Edite d Result - Final * (ABNORMAL) BMP with Ca, Total (07/12/2024 4:44 AM CDT) SODIUM 141 136 - 145 mmol/L 07/12/2024 5:[address] [facility] POTASSIUM 3.9 3.5 - 5.1 mmol/L 07/12/2024 5:55 AM CDT [facility] CHLORIDE 108(H) 98 - 107 mmol/L 07/12/2024 5:[address] [facility] CO2, VENOUS 26 22 - 30 mmol/L 07/12/2024 5:[address] [facility] ANION GAP 10.9 <18.0 mmol/L 07/12/2024 5:55 AM CDT [facility] GLUCOSE 85 70 - 99 mg/dL 07/12/2024 5:[address] [facility] BUN 11 9 - 21 mg/dL 07/12/2024 5:55 AM CDT [facility] CREATININE, BLOOD 1.14 0.70 - 1.30 mg/dL 07/12/2024 5:55 AM CDT [facility] BUN/CREATININE RATIO 10(L) 12 - 20 ratio 07/12/2024 5:55 AM CDT [facility] CALCIUM 8.9 8.7 - 10.5 mg/dL 07/12/2024 5:55 AM CDT [facility] GFR, ESTIMATED >60 >=60 07/12/2024 5:55 AM CDT [facility] Comment: Creatinine Clearance is the preferred criteria for selecting drug dose adjustments in renally impaired patients. The GFR is provided as additional pertinent clinical information. GFR is reported in mL/min/1.73 sq m. Calculation based on the Chronic Kidney Disease Epidemiology Collaboration (CKD- EPI) equation refit without adjustment for race. GFR, EST. >60 >=60 025 5:55 AM CDT [facility] GFR, EST. NONAFRICAN >60 >=60 07/12/2024 5:55 AM CDT [facility] Blood Venipuncture / Unknown 07/12/2024 4:44 AM CDT 07/12/2024 5:30 AM CDT us Kira Ji PODODERMATOLOGIST, GLASS BELT SANDER CHEMISTRY ORDERABLES Lucy l Result Performing Organization Address City/[facility]/ZIP Co de Phone Number [facility] [address] [place] [address] * RHYTHM STRIP (07/12/2024 12:00 AM CDT) Only the most recent of2 resultswithin the time period is included. 07/12/2024 us Provider Scan IMG ECG ORDERABLES Final Result RESULTING AGENCY * TROPONIN I, HIGH SENSITIVITY (HSTRP) (07/11/2024 11:14 PM CDT) Only the most recent of3 resultswithin the time period is included. TROPONIN I, HIGH SENSITIVITY- [place] 3 <=35 ng/L 07/12/2024 12:03 AM CDT [facility] Comment: High-sensitivity troponin I results are reported in ng/L making the result appear to be 1,000 times higher than the contemporary troponin I value which is reported in ng/ml. Results from [place]. Blood Venipuncture / Unknown 07/11/2024 11:14 PM CDT 07/11/2024 11:17 PM CDT us Kira Ji PODODERMATOLOGIST, GHAZALA CHEMISTRY ORDERABLES Lucy chencho Result [facility] [place] [address] * XR CHEST SINGLE VIEW PORTABLE (07/11/2024 8:56 PM CDT) Anatomical Region Laterality Modality Chest N/A Digital Radiogra phy 07/11/2024 9:07 PM CDT Impressions 07/11/2024 9:10 PM CDT IMPRESSION: No acute findings. Narrative 07/11/2024 9:10 PM CDT EXAM DESCRIPTION: XR CHEST SINGLE VIEW PORTABLE REASON FOR STUDY: pt c/o LT sided chest pain and pressure for the last 2 days. pt denies any other chest complaints. pt is a current smoker, no hx of surgery TECHNIQUE: Single-view COMPARISON: 11/10/2022 FINDINGS: Central vascularity have normal caliber. Perihilar interstitial densities may indicate mild scarring and appears similar to previous. Granulomatous calcification left hilar region unchanged. No dense consolidation, effusion or pneumothorax. THIS IS AN ELECTRONICALLY VERIFIED FINAL REPORT 07/11/2024 9:07 PM - Electronically signed by Gustavo Vieyra M.D. RB: ADAM Report ID: [id number] Reading Location: [id number] Procedure Note Gustavo Vieyra MD - 07/11/2024 EXAM DESCRIPTION: XR CHEST SINGLE VIEW PORTABLE REASON FOR STUDY: pt c/o LT sided chest pain and pressure for the last 2 days. pt denies any other chest complaints. pt is a current smoker, no hx of surgery TECHNIQUE: Single-view COMPARISON: 11/10/2022 FINDINGS: Central vascularity have normal caliber. Perihilar interstitial densities may indicate mild scarring and appears similar to previous. Granulomatous calcification left hilar region unchanged. No dense consolidation, effusion or pneumothorax. THIS IS AN ELECTRONICALLY VERIFIED FINAL REPORT 07/11/2024 9:07 PM - Electronically signed by Gustavo Vieyra M.D. RB: ADAM Report ID: [id number] Reading Location: [id number] IMPRESSION: No acute findings. Gustavo Singh MD IMG DIAGNOSTIC ORDER ROMAN Final Result * EKG 12 LEAD (07/11/2024 8:21 PM CDT) Ventricular Rate 64 BPM EXTERNAL EKG Atrial Rate 64 BPM EXTERNAL EKG P-R Interval 148 ms EXTERNAL EKG QRS Duration 96 ms EXTERNAL EKG Q-T Duration 370 ms EXTERNAL EKG QTC CALCULATION 381 ms EXTERNAL EKG P [place] 49 degrees EXTERNAL EKG R [place] -8 degrees EXTERNAL EKG T [place] 31 degrees EXTERNAL EKG 07/11/2024 8:21 PM CDT Impressions EXTERNAL EKG - 07/16/2024 4:35 PM CDT Normal sinus rhythm Normal ECG When compared with ECG of 10-NOV-2022 23:14, QT has shortened Confirmed by JOHN DELCID ([id number]) on 07/16/2024 4:35:02 PM Narrative Procedure Note John Delcid MD - 07/16/2024 IMPRESSION: Normal sinus rhythm Normal ECG When compared with ECG of 10-NOV-2022 23:14, QT has shortened Confirmed by JOHN DELCID ([id number]) on 07/16/2024 4:35:02 PM us Gustavo Singh MD IMG ECG ORDERABLES F inal Result Performing Organization Address [facility] Co de Phone Number EXTERNAL EKG * EKG SCAN (07/11/2024 12:00 AM CDT) 07/11/2024 us Provider Scan IMG ECG ORDERABLES Final Result Performing Organization Address [facility] de Phone Number RESULTING AGENCY * HEPATITIS C ANTIBODY (08/23/2023 12:26 PM CDT) hepatitis C antibody 0.10 <1 S/CO 08/23/2023 9:04 PM CDT [facility] Comment: Signal/Cutoff ratio < 0.79 is Nondetected Signal/Cutoff ratio 0.80-0.99 is Grayzone Signal/Cutoff ratio > 0.99 is Detected Supplemental assays are recommended if signal/cutoff ratio is >/=1.00. Signal/cutoff ratio result >/= 5.00 is 97% predictive of positivity for recombinant immunoblot assay (RIBA) and will be reported to the [place] Department of Public Health as required. Blood Venipuncture / Unknown 08/23/2023 12:26 PM CDT 08/23/2023 12:26 PM CDT us Mary Aly PODODERMATOLOGIST, GLASS BELT SANDER CHEMISTRY ORDERABLES Final Result Performing Organization Address [facility] de Phone Number [facility] [address] [place] [address], [place] * HM COLONOSCOPY (04/26/2021 12:00 AM GAMEWELL OPERATOR) 04/26/2021 us Not On File Provider PROCEDURE/MINOR SURGICAL OR DERABLES Final Result Performing Organization Address City/[facility] de Phone Number SCAN from Last 3 Months or Most Recently Relevant to Health Maintenance Insurance MEDICAID VU Advance Directives * Full Code (Latest Code Status on File) Date Activated Date Inactivated Comments 07/11/2024 11:42 PM CPR-Full Li tment: FULL ARREST: Attempt Resuscitation/CPR wit intubation and mechanical ventilation. PRE-ARREST: Use entire range of life support measures to stabilize the patient. * Full Code Date Activated Date Inactivated Comments 10/12/2018 9:03 PM 10/13/2018 3:09 PM CPR-Full Jg atment: FULL ARREST: Attempt Resuscitation/CPR wit intubation and mechanical ventilation. PRE-ARREST: Use entire range of life support measures to stabilize the patient. Care Teams Project Specialist Relationship Specialty Start Date End Date Mary Aly, PODODERMATOLOGIST, GLASS BELT SANDER [address] [place] [address] PCP - General Certified Nurse Practitioner 08/10/23
--- OUTSIDE RECORDS SUMMARY | 2024-09-30 14:32 | XMS_ITS | CONTINUITY OF CARE DOCUMENT ---
Author Name david hernandez Address Unknown Organization [facility] Address [address] [place] [address] Phone [phone] Care Team Providers Care Roustabout Supervisor Name Role Phone Jermaine QUINONES, Orquidea Unavailable [phone] DARIN QUINONES, TRISH Unavailable [phone] DARIN QUINONES, TRISH Unavailable PROBLEMS Condition Status Date Provider Notes Chest pain-type to be determined active Syed Dean MD Numbness in both arms and feet active Jcarlos Dean MD Tobacco abuse, chewing tobacco active Jcarlos Dean MD Morbid obesity active Orquidea Dean MD HTN essential active Orquidea Dean MD Depression active Orquidea Dean MD Vitamin D deficiency active Orquidea Dean MD Mental retardation active Orquidea Dean MD GAYLE on CPAP active Orquidea Dean MD Family History of Hypertension: completed - Claudio Castillo DYSLIPIDEMIA active Won Castillo ENCOUNTERS Date Type Provider Location Encounter Diag nosis - In-person encounter Office Visit [facility]person encounter Office Visit Orquidea Dean [facility] - In-person encounter Office Visit Orquidea Dean [facility] Family History of Hypertension:DYSLIPIDEMIA - In-person encounter Office Visit Orquidea Dean [facility] - In-person encounter Office Visit [facility]quidea [facility] GAYLE on CPAP - In-person encounter Office Visit Orquidea Dean MD [facility] - In-person encounter Office Visit Orquidea Dean [facility] Chest pain-type to be determinedNumbness in both arms and feetTobacco abuse, chewing tobaccoMorbid obesityHTN essentialDepressionVitamin D deficiencyMental retardationOSA on CPAP VITAL SIGNS Date Observation Value Provider Body Mass Index (Ratio) 49.75 kg/m2 Gt Castillo blood pressure, resting No [facility] size regular [facility] blood pressure, diastolic 70 mm[Hg] [facility] blood pressure, systolic 140 mm[Hg] Kri [facility] pulse rate 76 /min [facility] oxygen saturation, oximetry 96 % [facility] respiratory rate E&M 18 /min [facility] weight E&M 299 [lb_av] [facility] height E&M 65 [in_i] [facility] Body Mass Index (Ratio) 48.09 kg/m2 Juan Dean MD pulse rate 69 /min [facility] blood pressure, diastolic 88 mm[Hg] [facility], systolic 128 mm[Hg] [facility] oxygen saturation, oximetry 97 % [facility] weight E&M 289 [lb_av] [facility] respiratory rate E&M 16 /min Brittan y Block height E&M 65 [in_i] [facility] Body Mass Index (Ratio) 46.59 kg/m2 Gt Castillo blood pressure, diastolic 80 mm[Hg] Hermilo Hernadez blood pressure, systolic 126 mm[Hg] Lucia Hernadez oxygen saturation, oximetry 98 % Charlene Hernadez pulse rate 75 /min Charlene Schwab blood pressure, resting Yes Padilla Hernadez weight E&M 280 [lb_av] Charlene Schwab height E&M 65 [in_i] Charlene Schwab Body Mass Index (Ratio) 42.26 kg/m2 Juan Dean MD blood pressure, diastolic 80 mm[Hg] [facility], systolic 118 mm[Hg] [facility] [place] oxygen saturation, oximetry 98 % [facility] respiratory rate E&M 16 /min [facility] pulse rate 70 /min [facility] weight E&M 254 [lb_av] [facility] height E&M 65 [in_i] [facility] Body Mass Index (Ratio) 44.59 kg/m2 Juan Dean MD respiratory rate E&M 18 /min Carolyn Laura pulse rate 61 /min Carolyn Sanchez oxygen saturation, oximetry 98 % Carolyn Sanchez blood pressure, diastolic 80 mm[Hg] Ryan Sanchez blood pressure, systolic 110 mm[Hg] Michael Sanchez blood pressure, cuff size regular Ryan Sanchez weight E&M 268 [lb_av] Carolynisaura Sanchez height E&M 65 [in_i] Carolynisaura Sanchez blood pressure, diastolic, left arm 68 mm [Hg] Bernadine Mcmahon blood pressure, systolic, left arm 118 mm [Hg] Bernadine Mcmahon blood pressure, diastolic, right arm 78 m m[Hg] Bernadine Mcmahon blood pressure, systolic, right arm 117 m m[Hg] Bernadine Mcmahon blood pressure, diastolic 68 mm[Hg] Pr tavares Mcmahon blood pressure, systolic 118 mm[Hg] Jocelyn Mcmahon pulse rate 57 /min Bernadine Mcmahon respiratory rate E&M 16 /min Bernadine Mcmahon oxygen saturation, oximetry 99 % Bernadine Mcmahon Body Mass Index (Ratio) 38.94 kg/m2 Yessy Mcmahon weight E&M 234 [lb_av] Bernadine Lisandro blood pressure, diastolic, left arm 80 mm [Hg] Berkley Horsey blood pressure, systolic, left arm 140 mm [Hg] Berkley Horsey blood pressure, diastolic, right arm 70 m m[Hg] Berkley Horsey blood pressure, systolic, right arm 136 m m[Hg] Berkley Horsey Body Mass Index (Ratio) 42.26 kg/m2 Sand ra Horsey pulse rate 70 /min Berkley Horsey oxygen saturation, oximetry 98 % Berkley Horsey respiratory rate E&M 16 /min Berkley Horsey blood pressure, diastolic 70 mm[Hg] Sa ndra Horsey blood pressure, systolic 136 mm[Hg] Begum allison Horsey weight E&M 254 [lb_av] Berkley Horsey height E&M 65 [in_i] Berkley Horsey ALLERGIES No Known Drug Allergies RESULTS Date Observation Value Provider Reference Range Interpretation Location 0 hemoglobin A1C, blood, as % of total hemoglobin 5.6 % [facility] 4.8-5.6 0 platelet count 256 X10E3/UL [facility] [phone] 0 red blood cell distribution width 13.0 % [facility] 11.6-15.4 0 mean corpuscular hemoglobin concentration, RBC 32.6 G/DL [facility] 31.5-35.7 0 mean corpuscular hemoglobin, RBC 28.5 pg [facility] 26.6-33.0 0 mean corpuscular volume, RBC 88 fL [facility] 79-97 0 hematocrit, blood 43.9 % [facility] 37.5-51.0 0 hemoglobin, blood 14.3 g/dL [facility] 13.0-17.7 0 erythrocyte (RBC) count 5.01 X10E6/UL [facility] 4.14-5.80 0 leukocyte count, blood 8.3 X10E3/UL [facility] 3.4-10.8 0 lipoprotein, beta, serum, point, quantitative, calculated 117 mg/dL [facility] 0-99 High 0 HDL cholesterol, serum 36 mg/dL [facility] >39 Low 0 triglyceride, serum, random 136 mg/dL [facility] 0-149 0 cholesterol, serum 178 mg/dL [facility] [phone] 0 alanine aminotransferase (SGPT), serum 17 1/L [facility] 0-44 0 aspartate aminotransferase (SGOT), serum 16 1/L [facility] 0-40 0 alkaline phosphatase, serum 83 1/L [facility] 39-117 0 bilirubin, serum, total 0.5 mg/dL [facility] 0.0-1.2 0 albumin/globulin ratio, serum 1.6 [facility] 1.2-2.2 0 globulin, serum 2.8 [facility] 1.5-4.5 0 albumin, serum 4.4 g/dL [facility] 4.0-5.0 0 protein, total, serum 7.2 g/dL [facility] 6.0-8.5 0 calcium, serum 9.4 mg/dL [facility] 8.7-10.2 0 carbon dioxide, venous blood 23 mmol/L [facility] 20-29 0 chloride, serum 104 mmol/L [facility] 96-106 0 potassium, serum 4.4 mmol/L [facility] 3.5-5.2 0 sodium, serum 141 mmol/L [facility] [phone] 0 urea nitrogen/creatinine ratio, serum 9 [facility] 9-20 0 eGFR if 75 mL/min/{1 .73_m2} [facility] >59 0 eGFR if not 65 mL/min/{1 .73_m2} [facility] >59 0 creatinine, serum 1.32 mg/dL [facility] 0.76-1.27 High 0 urea nitrogen, blood 12 mg/dL [facility] 6-24 0 blood glucose, random 91 mg/dL [facility] 65-99 8 free thyroxine index 1.3 [facility] 1.2-4.9 8 triiodothyronine resin uptake 22 % [facility] 24-39 Low 8 thyroxine, serum, total 5.9 ug/dL [facility] 4.5-12.0 8 thyroid stimulating hormone, serum 2.060 u[IU]/mL [facility] 0.450-4.500 8 hemoglobin A1C, blood, as % of total hemoglobin 5.5 % [facility] 4.8-5.6 8 lipoprotein, beta, serum, point, quantitative, calculated 118 mg/dL [facility] 0-99 High 8 very low density lipoproteins 32 mg/dL [facility] 5-40 8 HDL cholesterol, serum 40 mg/dL [facility] >39 8 triglyceride, serum, random 159 mg/dL [facility] 0-149 High 8 cholesterol, serum 190 mg/dL [facility] 285-276 9124/08/2 8 platelet count 248 X10E3/UL [facility] 836-015 1344/08/2 8 red blood cell distribution width 13.4 % [facility] 12.3-15.4 8 mean corpuscular hemoglobin concentration, RBC 34.3 G/DL [facility] 31.5-35.7 8 mean corpuscular hemoglobin, RBC 29.1 pg [facility] 26.6-33.0 8 mean corpuscular volume, RBC 85 fL [facility] 79-97 8 hematocrit, blood 42.9 % [facility] 37.5-51.0 8 hemoglobin, blood 14.7 g/dL [facility] 13.0-17.7 8 erythrocyte (RBC) count 5.06 X10E6/UL [facility] 4.14-5.80 8 leukocyte count, blood 8.0 X10E3/UL [facility] 3.4-10.8 8 alanine aminotransferase (SGPT), serum 28 1/L [facility] 0-44 8 aspartate aminotransferase (SGOT), serum 21 1/L [facility] 0-40 8 alkaline phosphatase, serum 71 1/L [facility] 39-117 8 bilirubin, serum, total 0.3 mg/dL [facility] 0.0-1.2 8 albumin/globulin ratio, serum 1.8 [facility] 1.2-2.2 8 globulin, serum 2.6 [facility] 1.5-4.5 8 albumin, serum 4.6 g/dL [facility] 3.5-5.5 8 protein, total, serum 7.2 g/dL [facility] 6.0-8.5 8 calcium, serum 10.0 mg/dL [facility] 8.7-10.2 8 carbon dioxide, venous blood 24 mmol/L [facility] 20-29 8 chloride, serum 104 mmol/L [facility] 96-106 8 potassium, serum 4.4 mmol/L [facility] 3.5-5.2 8 sodium, serum 142 mmol/L [facility] 817-416 0091/08/2 8 urea nitrogen/creatinine ratio, serum 7 [facility] 9-20 Low 8 eGFR if 77 mL/min/{1 .73_m2} [facility] >59 8 eGFR if not 66 mL/min/{1 .73_m2} [facility] >59 8 creatinine, serum 1.31 mg/dL [facility] 0.76-1.27 High 8 urea nitrogen, blood 9 mg/dL [facility] 6-24 8 blood glucose, random 87 mg/dL [facility] 65-99 HISTORY OF MEDICATION USE Medication Status Instructions Dates Provider Indications Com ments VITAMIN D3 125 MCG (5000 UT) ORAL CAPSULE active TAKE 1 CAPSULE BY MOUTH DAILY Courtney Dennison #90, 90 days supply, Prescribed by TRISH WEBSTER, Filled 03/23/2020 TOPIRAMATE 50 MG ORAL TABLET active TAKE 1 TABLET BY MOUTH TWICE DAILY Courtney Dennison #180, 90 days supply, Prescribed by TRISH WEBSTER, Filled 06/06/2020 LOSARTAN POTASSIUM-HCTZ 100-12.5 MG ORAL TABLET active TAKE 1 TABLET BY MOUTH DAILY Courtney Dennison Vitamin D deficiency #90, 90 days supply, Prescribed by TRISH WEBSTER, Filled 06/06/2020 ASPIRIN LOW DOSE 81 MG ORAL TABLET DELAYED RELEASE active TAKE 1 TABLET BY MOUTH DAILY Courtney Dennison #30, 30 days supply, Prescribed by TRISH WEBSTER, Filled 06/06/2020 ALBUTEROL SULFATE HFA 108 (90 BASE) MCG/ACT INHALATION AEROSOL SOLUTION active INHALE 2 PUFFS BY MOUTH EVERY 6 HOURS NEEDED FOR WHEEZING OR COUGH Courtney Dennison #18, 25 days supply, Prescribed by TRISH WEBSTER, Filled 06/08/2020 VASCEPA 1 GM ORAL CAPSULE completed take 2 capsules twice daily. - Courtney Dennison TRIAMCINOLONE ACETONIDE 0.1 % EXTERNAL CREAM active apply to affected area twice daily Berkley Watts ERGOCALCIFEROL 8000 UNIT/ML ORAL SOLUTION completed 2 drops daily - Orquidea Dean MD LOSARTAN POTASSIUM-HCTZ 50-12.5 MG ORAL TABLET completed Take 1 daily - Courtney Dennison SERTRALINE HCL 50 MG ORAL TABLET active take 1 daily Berkley Watts SOCIAL HISTORY Date Observation Value Provider social history E&M S moking History: Slim valdez is a former smoker. Won Castillo social history reviewed E&M revi ewed - no changes required Won Castillo smoking, year quit 2005 Courtney Pedraza sby smoking, date started 1998 Courtney Ashland smoking history, tot al pack/year 19 Courtney Ashland smoking history, tot al pack/day 1 Courtney Becerraby cigarette use yes Courtney Becerraby smoking status Former smoker Courtney Becerraby social history E&M S moking History: Slim valdez is a former smoker. Orquidea Dean MD social history reviewed E&M revi ewed - no changes required Orquidea Dean MD smoking, year quit 2005 Fiordaliza Block smoking, date started 1998 [facility] Block smoking history, tot al pack/year 19 Fiordaliza Block smoking history, tot al pack/day 1 Fiordaliza Block cigarette use yes Fiordaliza Block smoking status Former smoker Fiordaliza Matute social history E&M S moking History: Slim valdez is a former smoker. Orquidea Dean MD smoking, year quit 2005 Charlene umanzor-Zaheer smoking, date started 1998 Charlene Hernadez smoking history, tot al pack/year 19 Charlene Hernadez smoking history, tot al pack/day 1 Charlene Hernadez cigarette use yes Charlene Montgomery smoking status Former smoker Charlene Maribell torres-Zaheer social history reviewed E&M revi ewed - no changes required Charlene Hernadez smoking history, tot al pack/year 19 Candace Gallaghert smoking history, tot al pack/year 19 Candace Gallaghert social history E&M S moking History: Slim valdez is a former smoker. Orquidea Dean MD social history reviewed E&M revi ewed - no changes required Orquidea Dean MD smoking, year quit 2005 Lavell I ngram smoking, date started 1998 Killee n Cardona smoking history, tot al pack/day 1 [place] Cardona cigarette use yes [place] Cardona smoking status Former smoker [place] Ingr am number of grandchildren Orquidea Dean MD social history reviewed E&M revi ewed - no changes required Orquidea Dean MD smoking status Former smoker Orquidea ya MD social history E&M S moking History: Slim valdez is a former smoker. Orquidea Dean MD social history reviewed E&M revi ewed - no changes required Orquidea Dean MD smoking, year quit 2005 Bernadine frazier smoking, date started 1998 Lei Mcmahon smoking history, tot al pack/day 1 Bernadine Mcmahon cigarette use yes Bernadine Mcmahon social history E&M S moking History: Slim valdez is a former smoker. Orquidea Dean MD smoking/tobacco cess ation, patient education and counseling No Orquidea Dean MD social history reviewed E&M revi ewed - no changes required Orquidea Dean MD smoking, year quit 2005 Berkley horvath smoking, date started 1998 Berkley Horsey smoking history, tot al pack/day 1 Berkley Horsey cigarette use yes Berkley Horsey smoking status Former smoker Berkley Horse y FAMILY HISTORY Family Member Condition Father Family History of Co ronary Artery Disease: Mother Family History of Hy pertension: INSURANCE PROVIDERS Payer name Policy type / Coverage type Leyda red green party ID [employer]RELLA MEDICAID Medicaid [id number] ADVANCE DIRECTIVES Name Date DISCUSSED - NO DECISION MADE TREATMENT PLAN Date Name Performer Cardiology:Weight loss advised. Will check A1c. Cardiology:On replacement. Will check level. Cardiology:Off Vasce pa. Unclear if he ever got it from the pharmacy. Will check lipid panel. Cardiology:Compliant with CPAP. Cardiology:BP 140/70 . Advised reduced sodium intake and routine monitoring of the blood pressure. We aim for blood pressure less than 130/80. He continues on Losartan- HCTZ 100-12.5mg daily. No changes made today. Cardiology:No recurrence. Won Castillo Cardiology:Bp control is satisfa ctory. Orquidea Dean MD Cardiology:Compliant with CPAP. Orquidea Dean MD Cardiology:Compliant with meds. Orquidea Dean MD Cardiology:No recurrence. Viky Dean MD Cardiology :Cessation strongly a dvised. Orquidea Dean MD Cardiology :On repla cement therapy. Orquidea Dean MD Cardiology :Weight loss advised. Orquidea Dean MD Cardiology :Continue s on Vascepa. A lipid panel with direct LDL will be done today. Orquidea Dean MD Cardiology :The hermes ent is using CPAP on a regular basis. The patient has been benefiting from therapy and should continue use. Orquidea Dean MD Cardiology :Blood pressure contr ol is satisfactory. Orquidea Dean MD Cardiology:On Sertaline. Bhavani Dean MD Cardiology Orquidea Macdonald Cardiology:The patie nt is using CPAP on a regular basis. The patient has been benefiting from therapy and should continue use. Orquidea Dean MD Cardiology:Blood pressure contro l is satisfactory. Orquidea Dean MD Cardiology:No recurrence. Viky Dean MD Cardiology:On replacement therap y. Orquidea Dean MD Cardiology:The patie nt is actively using CPAP on a regular basis. He has been benefiting from therapy and should continue use. Orquidea Dean MD Cardiology:Weight loss advised. Orquidea Dean MD Cardiology:Blood pre ssure control is satisfactory. Continues on losartan-HCTZ 50-12.5 qD. Orquidea Dean MD Cardiology:No recurrence. Fair e ffort tolerance. Orquidea Dean MD Cardiology Orquidea Macdonald Cardiology:Compliant Orquidea reyes MD Cardiology:Blood pre ssure control is satisfacotry. He will continue on present medications. Orquidea Dean MD Cardiology:Strongly advised to s top smoking Orquidea Dean MD Cardiology:On replacement therap y. Orquidea Dean MD Cardiology:Blood pressure contro l is satisfactory. Orquidea Dean MD Cardiology:Weight loss advised. Orquidea Dean MD Cardiology:Advised to stop using tobacco. Orquidea Dean MD Cardiology Orquidea Macdonald Cardiology:Will bene fit from B12 and folic acid replacement. If remains symptomatic, consider a nerve conduction study. Orquidea Dean MD Cardiology:Pain repr oducible on palpation. Likely musculoskeletal pain. He had a stress and an echo done at [facility] at the beginning of this year. We will get those results. As per pt, they were normal. Orquidea Dean MD Date Name Vitamin D, 25-Hydrox y CBC (H/H, RBC, INDIC ES, WBC, PLT) HEMOGLOBIN A1c LIPID PANEL COMPREHENSIVE METABO LIC PANEL, W/EGFR Vitamin D, 25-Hydrox y Other CBC (H/H, RBC, INDIC ES, WBC, PLT) HEMOGLOBIN A1c COMPREHENSIVE METABO LIC PANEL, W/EGFR THYROID PANEL WITH T SH, 3RD GENERATION LIPID PANEL Complete Echo HISTORY OF PROCEDURES Procedure Date Procedure Name Provider Procedure Notes S tatus EKG Orquidea Dean MD complet ed EKG Orquidea Dean MD complet ed EKG Orquidea Dean MD complet ed EKG Orquidea Dean MD complet ed EKG Orquidea Dean MD complet ed SNOMED-CT: 166845697 [id number] Current Medications Documented Orquidea Dean MD completed SNOMED-CT: 25060779 Physical Exam, Performed: Pulse Exam of Foot Orquidea Dean MD completed SNOMED-CT: 745161397 241537 Current Medications Documented Orquidea Dean MD completed EKG Orquidea Dean MD complet ed EKG Orquidea Dean MD complet ed
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
--- OUTSIDE RECORDS SUMMARY | 2024-09-30 14:32 | XMS_ITS | Encounter Summary ---
Author Organization [facility] Address [address] [place] [address] Phone Care Team Providers Care Silverlight Developer Name Role Phone Mary Aly APRN, EDGER AUTOMATIC Primary Care Provider +1- [phone] Reason for Visit * Reason Onset Date Comments Leg Pain 09/30/2024 Encounter Details Date Type Department Care Team (Late st Contact Info) Description 09/30/2024 Nurse Triage [facility] [address] [place] [address] Mary Aly APRN, EDGER AUTOMATIC [address] [place] [address] Leg Pain Social History Tobacco Use Types Packs/Day Years Used Date Smoking Tobacco: Former Cigarettes 1 5 Smokeless Tobacco: Current Chew Alcohol Use Standard Drinks/Week Comments No 0 (1 standard drink = 0.6 oz pur e alcohol) [facility] Utilities Answer Date Recorded In the past 12 months has [employer], gas, oil, or water [employer] threatened to shut off services in your [...] week 09/11/2024 How often do you attend [facility] or rastafarian services? Never 09/11/2024 Do you belong to any clubs o r organizations such as congregation groups, unions, fraternal or athletic groups, or [...] Total Score - Questions 1-9 0 08/16 [facility] - Occupational Stress Questionnaire Answer Date Recorded [...] any time in the past 12 m [facility], were you homeless or living in a snf (including now)? No 09/11/2024 Sexually Active Control Partners Comments Not Currently Sex and Gender Information Value Date Recorded Sex Assigned at Not on file Legal Sex Male 8:58 PM CDT Gender Identity Not on file Sexual Orientation Not on file documented as of this encounter Miscellaneous Notes * Telephone Encounter - Charles Alatorre RN - 09/30/2024 11:35 AM CDT SITUATION: left lower leg pain BACKGROUND: Patient contacting PCP office. Francine alvarez, cousin, on PRD talking with patient. symptoms for a couple of days ASSESSMENT: Symptom Description / Location: Left lower leg Limping Muscle cramps in the back of his leg Denies injury, redness, or swelling Pain: 10/10 Fever: Denies fever. Treatment / Response: ibuprofen with some relief. No further triage completed, due to emergent disposition. RECOMMENDATION: Dispositions for Encounter:Go to ED Now (or PCP Triage). Reason for Disposition: Thigh or calf painin only one leg and present > 1 hour . Protocols Used: Leg Pain-A-OH Caller agreeable to disposition: go to ED/C now. Care advice provided per triage guideline. Caller verbalized understanding. Advised for patient to have another adult drive them to the ED. Discussed utilizing [employer] to: schedule appointment with [facility] - See care advice and disposition for Guideline. First positive answer recorded, all responses to prior questions were negative. If symptoms increase, change or if new symptoms develop, call your health care provider or call back. Recommendations were based on caller information and is not a diagnosis. Verified and reviewed all triage information with caller. * Telephone Encounter - Julia Jason - 09/30/2024 11:35 AM CDT Symptom: Leg Pain - Not From Injury Outcome: Transfer to coremaker apprentice queue Reason: Trouble walking The caller accepted this outcome. documented in this encounter Plan of Treatment Not on file documented as of this encounter Visit Diagnoses Not on filedocumented in this encounter Additional Health Concerns Assessment Noted Time PHQ-9 Depression Total Score: 0 09/06/19 25 2:56 PM CDT documented as of this encounter Care Teams Silverlight Developer Relationship Specialty Start Date End Date Mary Aly, HORSE AND WAGON DRIVER, EDGER AUTOMATIC [address] [place] [address] PCP - General Certified Nurse Practitioner 08/10/23 documented as of this encounter
--- OUTSIDE RECORDS SUMMARY | 2024-09-30 14:32 | XMS_ITS | Encounter Summary ---
Author Organization [facility] Address [address] [place] [address] Phone Care Team Providers Care Hims Clerk Name Role Phone Gloria Martinez MD Primary Care Provider Jen Malave APRN, [facility] Primary Care Provider Provider, None Primary Care Provider UnavailMary Little APRN, [facility] Primary Care Provider + [phone] Holly Grimes BOARD LINING MACHINE OPERATOR Unavailable Unavailab le Reason for Visit * Reason Comments Medication Refill Encounter Details Date Type Department Care Team (Late st Contact Info) Description 05/26/2021 Refill [facility] - Primary Care - [place] [address] [place] [address] Gloria Martinez MD [address] [place] [address] Medication Refill Social History Tobacco [...] on file Sexual Orientation Not on file COVID-19 Exposure Response Date Recorded In the last month, have you been in contact with someone who was confirmed or suspected to have Coronavirus / COVID-19? No / Unsure 04/30/2021 11:52 AM PRINTED CIRCUIT BOARDS PINNER documented as of this encounter Plan of Treatment Not on file documented as of this encounter Visit Diagnoses Diagnosis Chronic bronchitis, unspecified chronic bronchitis type (HCC) documented in this encounter Additional Health Concerns Assessment Noted Time PHQ-9 Depression Total Score: 0 03/23/20 20 9:00 AM PRINTED CIRCUIT BOARDS PINNER documented as of this encounter Care Teams Hims Clerk Relationship Specialty Start Date End Date Gloria Martinez MD [address] [place] [address] PCP - General Family Medicine 07/09/18 05/29/22 Jen Malave APRN, RECRUITING CONSULTANT [address] [place] [address] PCP - General Advanced Practice Nurse 05/30/22 Provider, None [place] PCP - General 11/10/22 08/09/23 Mary Aly ASBESTOS CLOTH INSPECTOR, RECRUITING CONSULTANT [address] [place] [address] PCP - General Certified Nurse Practitioner 08/10/23 Holly Grimes, MARTINEZ [place] Cone Treater Drill Presser 09/06/24 09/11/24 documented as of this encounter
--- OUTSIDE RECORDS SUMMARY | 2024-09-30 14:32 | XMS_ITS | Encounter Summary ---
Author Organization [facility] Address [address] [place] [address] Phone Care Team Providers Care Rn Integrated Name Role Phone Mary Aly APRN, ASBESTOS TEXTILE SUPERVISOR Primary Care Provider [phone]- [phone] Holly Grimes SUPERVISOR CUSTOMER RECORDS DIVISION Unavailable Unavailab le Reason for Visit * Reason Comments Medication Refill Encounter Details Date Type Department Care Team (Late st Contact Info) Description 07/17/2024 Refill [facility] - [place] Care - [place] [address] [place] [address] Mary Aly APRN, ASBESTOS TEXTILE SUPERVISOR [address] [place] [address] Medication Refill Social History Tobacco Use Types Packs/Day Years Used Date Smoking Tobacco: Former Cigarettes 1 5 Smokeless Tobacco: Current Chew Alcohol Use Standard Drinks/Week Comments No 0 (1 standard drink = 0.6 oz pur e alcohol) [facility] Utilities Answer Date Recorded In the past 12 months has [employer], gas, oil, or water company threatened to shut off services in your home? Patient declined 07/11/2024 Social Connection and Isolation Panel Answer Date Recorded In a typical week, how many times do you talk on the phone with family, friends, or neighbors? Patient declined 07/11/2024 How often do you get togethe r with friends or relatives? Patient declined 07/11/2024 How often do you attend methodist or episcopal serv ices? Patient declined 07/11/2024 Do you belong to any clubs o r organizations such as methodist groups, unions, fraternal or athletic groups, or school groups? Patient declined 07/11/2024 How often do you attend meet ings of the clubs or organizations you belong to? Patient declined 07/11/2024 Are you , , di vorced, , never , or living with a partner? 07/11/2024 AUDIT-C Answer Date Recorded Q1: How often do you have a drink containing alc ohol? Monthly or less 07/11/2024 Q2: How many drinks containi ng alcohol do you have on a typical day when you are drinking? 1 or 2 07/11/2024 Q3: How often do you have si x or more drinks on one occasion? Never 07/11/2024 Overall Financial Resource Strain (CARDIA) Answe r Date Recorded How hard is it for you to pa y for the very basics like food, housing, medical care, and heating? Not hard at all 07/11/2024 PHQ-2 Answer Date Recorded Total Score - Questions 1-9 0 12/17 [facility] Occupat ional Health - Occupational Stress Questionnaire Answer Date Recorded Do you feel stress - tense, restless, nervous, or anxious, or unable to sleep at night because your mind is troubled all the time - these days? Not at all 07/11/2024 Exercise Vital Sign Answer Date Recorde d On average, how many days pe r week do you engage in moderate to strenuous exercise (like a brisk walk)? 2 days 07/11/2024 On average, how many minutes do you engage in exercise at this level? 30 min 07/11/2024 Hunger Vital Sign Answer Date Recorded Within the past 12 months, y ou worried that your food would run out before you got the money to buy more. Patient declined Within the past 12 months, t he food you bought just didn't last and you didn't have money to get more. Patient declined PRAPARE - Transportation Answer Date Re corded In the past 12 months, has l ack of transportation kept you from medical appointments or from getting medications? No 06/16 In the past 12 months, has l ack of transportation kept you from meetings, work, or from getting things needed for daily living? No 07/11/2024 Housing Stability Vital Sign Answer Héctor e Recorded In the last 12 months, was t here a time when you were not able to pay the mortgage or rent on time? No 07/11/2024 In the past 12 months, how m any times have you moved where you were living? 1 07/11/2024 At any time in the past 12 m [facility], were you homeless or living in a fdc (including now)? No 07/11/2024 Sexually Active Control Partners Comments Not Currently Sex and Gender Information Value Date Recorded Sex Assigned at Not on file Legal Sex Male 8:58 PM CDT Gender Identity Not on file Sexual Orientation Not on file documented as of this encounter Plan of Treatment Not on file documented as of this encounter Visit Diagnoses Not on filedocumented in this encounter Additional Health Concerns Assessment Noted Time PHQ-9 Depression Total Score: 0 01/12/20 24 10:31 AM CDT documented as of this encounter Care Teams Rn Integrated Relationship Specialty Start Date End Date Mary Aly, VICE PRESIDENT [employer], ASBESTOS TEXTILE SUPERVISOR [address] [place] [address] PCP - General Certified Nurse Practitioner 08/10/23 Holly Grimes LSW MD Central Office Operator Shaft Sinker 09/06/24 09/11/24 documented as of this encounter
--- OUTSIDE RECORDS SUMMARY | 2024-09-30 14:32 | XMS_ITS | Encounter Summary ---
Author Organization [facility] Address [address] [facility] [place] [address] Phone Care Team Providers Care Blister Rust Eradicator Name Role Phone Gloria Martinez MD Primary Care Provider [phone] Jen [place] APRN, [facility] Primary Care Provider Provider, None Primary Care Provider Unavailabigail e Mary Aly APRN, [facility] Primary Care Provider + [phone] Holly Grimes MENU PLANNER Unavailable Unavailab le Reason for Visit * Reason Comments Medication Refill Encounter Details Date Type Department Care Team (Late st Contact Info) Description 02/10/2020 [facility] [address] [place] [address] Gloria Martinez MD [address] [place] [address] Medication Refill Social History Tobacco Use Types Packs/Day Years Used Date Smoking Tobacco: Never Smokeless Tobacco: Current Chew Alcohol Use Standard Drinks/Week Comments No 0 (1 standard drink = 0.6 oz pur e alcohol) PHQ-2 Answer Date Recorded PHQ-2 Score 0 12/13/2018 Sex and Gender Information Value Date Recorded Sex Assigned at Not on file Legal Sex Male 8:58 PM CDT Gender Identity Not on file Sexual Orientation Not on file documented as of this encounter Miscellaneous Notes * Telephone Encounter - Elaine Lal RN - 02/11/2020 8:48 AM CDT Pharmacy notified via surescripts of refill too soon.Patient has requested refill too soon (REFILL TOO SOON: filled 11-03; #90 +1) documented in this encounter Plan of Treatment Not on file documented as of this encounter Visit Diagnoses Diagnosis Depression, unspecified depression type documented in this encounter Additional Health Concerns Assessment Noted Time PHQ-9 Depression Total Score: 0 01/30/20 19 9:00 AM CDT documented as of this encounter Care Teams Blister Rust Eradicator Relationship Specialty Start Date End Date Gloria Martinez MD [address] [place] [address] PCP - General Family Medicine 07/09/18 05/29/22 Jen [place] APRN, MOTORIZED SQUAD LIEUTENANT [address] [place] [address] PCP - General Advanced Practice Nurse 05/30/22 Provider, None [place] PCP - General 11/10/22 08/09/23 Mary Aly WAITSTAFF, MOTORIZED SQUAD LIEUTENANT [address] [place] [address] PCP - General Certified Nurse Practitioner 08/10/23 Holly Grimes LSW [place] Hearth Feeder Manager Field Services 09/06/24 09/11/24 documented as of this encounter
--- OUTSIDE RECORDS SUMMARY | 2024-09-30 14:32 | XMS_ITS | Encounter Summary ---
Author Organization [facility] Address [address] [facility] [place] [address] Phone Care Team Providers Care Web Applications Developer Name Role Phone Provider, None Primary Care Provider UnavailaMry Little APRN, MARKING STITCHER Primary Care Provider [phone] Holly Grimes PLANT CONTROLLER Unavailable Unavailab le Reason for Visit * Reason Comments Medication Refill Encounter Details Date Type Department Care Team (Late st Contact Info) Description 11/11/2022 Refill [facility] - Primary Care - [place] [address] [place] [address] Jen [place], JOHN, MARKING STITCHER [address] [place] [address] Medication Refill Social History Tobacco [...] Exposure Response Date Recorded In the last 10 days, have yo u been in contact with someone who was confirmed or suspected to have Coronavirus/COVID-19? No / Unsure 11/10/2022 11:15 PM CDT documented as of this encounter Miscellaneous Notes * Telephone Encounter - Xiomara Keith APRN, CNP - 11/11/2022 2:08 PM CDT Needs new pcp, final fill. * Telephone Encounter - Milana Hurt RN - 11/11/2022 8:48 AM CDT Medication failed the protocol, provider to review and approve the medication order if appropriate. Requested Prescriptions Pending Prescriptions Disp Refills losartan potassium-hydrochlorothiazide (HYZAAR) 100-25 MG Tablet [Pharmacy Med Name: LOSARTAN POTASSIUM/HYDROCHLOROTHIAZIDE 100-25 TABLET] 90 Tablet 0 Sig: TAKE 1 TABLET BY MOUTH DAILY. ANGIOTENSIN-II RECEPTOR BLOCKERS-DIURETICS COMBO PROTOCOL Passed - 11/11/2022 8:43 AM Passed - Serum potassium on record in past 12 months POTASSIUM Date Value Ref Range Status 11/11/2022 3.3 (L) 3.5 - 5.1 mmol/L Final Passed - Serum sodium on record in past 12 months SODIUM Date Value Ref Range Status 11/11/2022 138 136 - 144 mmol/L Final Passed - BP on record in the past year Clinician-entered: BP Readings from Last 3 Encounters: 11/11/22 148/84 05/23/22 124/80 03/31/22 166/80 Patient-entered: No data recorded Passed - Visit with relevant provider in past year or upcoming 90 days Recent Visits Date Type Provider Dept 05/23/22 Office Visit Jen [place] APRN, [facility] Showing recent visits within past 365 days and meeting all other requirements Future Appointments Date Type Provider Dept 11/22/22 Appointment Emmie Monk PAC [facility] Showing future appointments within next 90 days and meeting all other requirements Passed - GFR on record in past 12 months GFR, EST. NONAFRICAN Date Value Ref Range Status 11/11/2022 59 (L) >=60 Final Topiramate 50 MG Tablet [Pharmacy Med Name: TOPIRAMATE 50MG TABLET] 180 Tablet 0 Sig: TAKE ONE (1) TABLET BY MOUTH TWICE DAILY Not Delegated - Anticonvulsants Excluding Benzodiazepines Protocol Failed - 11/11/2022 8:43 AM Failed - This refill cannot be delegated Passed - Visit with relevant provider in past 12 months or upcoming 90 days Recent Visits Date Type Provider Dept 05/23/22 Office Visit Jen [place] APRN, [facility] Showing recent visits within past 365 days and meeting all other requirements Future Appointments Date Type Provider Dept 11/22/22 Appointment Emmie Monk, [facility] Showing future appointments within next 90 days and meeting all other requirements sertraline (ZOLOFT) 50 MG Tablet [Pharmacy Med Name: SERTRALINE HCL 50MG TABLET] 90 Tablet 0 Sig: TAKE 1 TABLET BY MOUTH DAILY. SSRI (6 Month Refill Only) Protocol Passed - 11/11/2022 8:43 AM Passed - Visit with relevant provider in past 6 months or upcoming 90 days Recent Visits Date Type Provider Dept 05/23/22 Office Visit Jen [place] APRN, [facility] Showing recent visits within past 182 days and meeting all other requirements Future Appointments Date Type Provider Dept 11/22/22 Appointment Emmie Monk, [facility] Showing future appointments within next 90 days and meeting all other requirements Passed - Patient has established therapy with SSRI for at least 6 months Passed - Has an encounter in the past 6 months with a depression, anxiety, adjustment disorder, OCD, or PTSD visit diagnosis documented in this encounter Plan of Treatment Not on file documented as of this encounter Visit Diagnoses Diagnosis Obesity, Class III, BMI 40-49.9 (morbid obesity) (HCC) Morbid obesity Depression, unspecified depression type documented in this encounter Additional Health Concerns Assessment Noted Time PHQ-9 Depression Total Score: 0 03/23/20 20 9:00 AM ACUTE CARE OCCUPATIONAL THERAPIST documented as of this encounter Care Teams Web Applications Developer Relationship Specialty Start Date End Date Provider, None [place] PCP - General 11/10/22 08/09/23 Mary Aly APRN, MARKING STITCHER [address] [place] [address] PCP - General Certified Nurse Practitioner 08/10/23 Holly Grimes LSW [place] [employer] Web Developer Management Consultant 09/06/24 09/11/24 documented as of this encounter
--- OUTSIDE RECORDS SUMMARY | 2024-09-30 14:32 | XMS_ITS | Encounter Summary ---
Author Organization [facility] Address [address] [facility] [place] [address] Phone Care Team Providers Care Dental Ceramist Assistant Name Role Phone Gloria Martinez MD Primary Care Provider Jen [place] APRN, [facility] Primary Care Provider Provider, None Primary Care Provider UnavailMary Little APRN, [facility] Primary Care Provider + [phone] Holly Grimes NUCLEAR REACTOR TECHNICIAN Unavailable Unavailab le Reason for Visit * Reason Comments Medication Refill Encounter Details Date Type Department Care Team (Late st Contact Info) Description 01/20/2022 Refill [facility] - Family Medicine [facility] [address] [place] [address] Gloria Martinez MD [address] [place] [address] Medication Refill Social History Tobacco Use Types [...] suspected to have Coronavirus/COVID-19? No / Unsure 01/20/2022 12:01 PM CDT documented as of this encounter Miscellaneous Notes * Telephone Encounter - Saundra Curtis RN - 01/20/2022 8:53 AM CDT Refill request too soon. documented in this encounter Plan of Treatment Not on file documented as of this encounter Visit Diagnoses Diagnosis Depression, unspecified depression type documented in this encounter Additional Health Concerns Assessment Noted Time PHQ-9 Depression Total Score: 0 03/23/20 20 9:00 AM DENTAL EQUIPMENT INSTALLER AND SERVICER documented as of this encounter Care Teams Dental Ceramist Assistant Relationship Specialty Start Date End Date Gloria Martinez MD [address] [place] [address] PCP - General Family Medicine 07/09/18 05/29/22 Jen [place], STORE HOST, SALT MINER [address] [place] [address] PCP - General Advanced Practice Nurse 05/30/22 Provider, None [place] PCP - General 11/10/22 08/09/23 Mary Aly, STORE HOST, SALT MINER [address] [place] [address] PCP - General Certified Nurse Practitioner 08/10/23 Holly Grimes LSW MD Advanced Quality Engineer Woodworking Shop Laborer 09/06/24 09/11/24 documented as of this encounter
--- OUTSIDE RECORDS SUMMARY | 2024-09-30 14:32 | XMS_ITS | Encounter Summary ---
Author Organization [facility] Address [address] [place] [address] Phone Care Team Providers Care Survey Director Name Role Phone Mary Aly APRN, FLOWER STRIPPER Primary Care Provider [phone]- [phone] Holly Grimes THIRD MILLER Unavailable Unavailab le Reason for Visit * Reason Onset Date Comments Advice Only 09/03/2024 Encounter Details Date Type Department Care Team (Late st Contact Info) Description 09/03/2024 Telephone [facility] [address] [place] [address] Mary Aly APRN, FLOWER STRIPPER [address] [place] [address] Advice Only Social History Tobacco Use Types Packs/Day Years Used Date Smoking Tobacco: Former Cigarettes 1 5 Smokeless Tobacco: Current Chew Alcohol Use Standard Drinks/Week Comments No 0 (1 standard drink = 0.6 oz pur e alcohol) [facility] Utilities Answer Date Recorded In the past 12 months has e electric, gas, oil, or water company [...] declined 07/11/2024 How often do you attend uatsdin or tenriism serv ices? Patient declined 07/11/2024 Do you belong to any clubs o r organizations such as uatsdin groups, unions, fraternal or athletic groups, or [...] Total Score - Questions 1-9 0 08/16 [facility] of Occupat ional Health - Occupational Stress [...] any time in the past [address] [facility], were you homeless or living in a correction (including now)? No 07/11/2024 Sexually Active Control Partners Comments Not Currently Sex and Gender Information Value Date Recorded Sex Assigned at Not on file Legal Sex Male 8:58 PM CDT Gender Identity Not on file Sexual Orientation Not on file documented as of this encounter Functional Status * Question Answer Date of Assessment Author Little interest or pleasure in doing things Not at all 09/05/2024 2:56 PM CDT Reina Lopez RMA Feeling down, depressed, or hopeless Not at all 09/05/2024 2:56 PM CDT Reina Lopez RMA * Over the past 2 weeks, how often have you been bothered by any of the following problems? Question Answer Date of Assessment Author Patient Health Questionnaire -2 Score 0 09/05/2024 2:56 PM CDT Reina Lopez RMA documented as of this encounter Miscellaneous Notes * Telephone Encounter - Shena Jacobs - 09/03/2024 3:34 PM CDT Symptoms: Cough, Chest Congestion, Hoarseness Outcome: Transfer to [employer] queue Reason: Wheezing (high-pitched whistling sound) The caller accepted this outcome. Caller Denied: * Choked on something * Any trouble breathing through the mouth documented in this encounter Plan of Treatment Not on file documented as of this encounter Visit Diagnoses Not on filedocumented in this encounter Additional Health Concerns Assessment Noted Time PHQ-9 Depression Total Score: 0 07/23/19 25 1:20 PM CDT documented as of this encounter Care Teams Survey Director Relationship Specialty Start Date End Date Mary Aly, CHECK CASHIER, FLOWER STRIPPER [address] [place] [address] PCP - General Certified Nurse Practitioner 08/10/23 Holly Grimes LSW [place] Hairspring Assembler Molecular Pathologist 09/06/24 09/11/24 documented as of this encounter
--- OUTSIDE RECORDS SUMMARY | 2024-09-30 14:32 | XMS_ITS | Encounter Summary ---
Author Organization [facility] Address [address] [facility] [place] [address] Phone Care Team Providers Care Stamping Die Maker Bench Name Role Phone Gloria Martinez MD Primary Care Provider [phone] Jen Malave APRN, [facility] Primary Care Provider Provider, None Primary Care Provider UnavailMary Little APRN, [facility] Primary Care Provider + [phone] Holly Grimes HERB GROWER Unavailable Unavailab le Reason for Visit * Reason Comments Medication Refill Encounter Details Date Type Department Care Team (Late st Contact Info) Description 02/01/2021 Refill [facility] - Family Medicine [facility] [address] [place] [address] Gloria Martinez MD [address] [place] [address] Medication Refill Social History Tobacco [...] Total Score: 0 03/23/20 20 9:00 AM CD MIXER documented as of this encounter Care Teams Stamping Die Maker Bench Relationship Specialty Start Date End Date Gloria Martinez MD [address] [place] [address] PCP - General Family Medicine 07/09/18 05/29/22 Jen Malave, ORCHID HAND, LOOP MACHINE OPERATOR [address] [place] [address] PCP - General Advanced Practice Nurse 05/30/22 Provider, None [place] PCP - General 11/10/22 08/09/23 Mary Aly, ORCHID HAND, LOOP MACHINE OPERATOR [address] [place] [address] PCP - General Certified Nurse Practitioner 08/10/23 Holly Grimes LSW [place] Customer Advisor Pilot Plant Research Technician 09/06/24 09/11/24 documented as of this encounter
--- OUTSIDE RECORDS SUMMARY | 2024-09-30 14:32 | XMS_ITS | Encounter Summary ---
Author Organization [facility] Address [address] [facility] [address] Phone Care Team Providers Care Psychiatrist Name Role Phone Provider, None Primary Care Provider Mary Oliver APRN, MEDICAL GRADE SHOEMAKER Primary Care Provider [phone] Holly Grimes SWING FRAME GRINDER OPERATOR Unavailable Unavailab le Reason for Visit * Reason Comments Medication Refill Encounter Details Date Type Department Care Team (Late st Contact Info) Description 08/07/2023 Refill [facility] - Primary Care - [place] [address] [place] [address] Xiomara Keith APRN, MEDICAL GRADE SHOEMAKER [address] [place] [address] Medication Refill Social History Tobacco [...] Miscellaneous Notes * Telephone Encounter - Charles Arreguin RN - 08/07/2023 10:58 AM CDT Patient no longer under provider care documented in this encounter Plan of Treatment Not on file documented as of this encounter Visit Diagnoses Diagnosis Depression, unspecified depression type Obesity, Class III, BMI 40-49.9 (morbid obesity) (HCC) Morbid obesity documented in this encounter Additional Health Concerns Assessment Noted Time PHQ-9 Depression Total Score: 0 03/23/20 20 9:00 AM GRADUATE FELLOW documented as of this encounter Care Teams Psychiatrist Relationship Specialty Start Date End Date Provider, None [place] PCP - General 11/10/22 08/09/23 Mary Aly, BOAT BUFFER PLASTIC, MEDICAL GRADE SHOEMAKER [address] [place] [address] PCP - General Certified Nurse Practitioner 08/10/23 Holly Grimes LSW [place] Button Reclaimer Deburring Technician 09/06/24 09/11/24 documented as of this encounter
--- OUTSIDE RECORDS SUMMARY | 2024-09-30 14:32 | XMS_ITS | Encounter Summary ---
Author Organization [facility] Address [address] [place] [address] Phone Care Team Providers Care Video Camera Operator Name Role Phone Gloria Martinez MD Primary Care Provider Jen Malave APRN, [facility] Primary Care Provider Provider, None Primary Care Provider UnavailMary Little APRN, [facility] Primary Care Provider + [phone] Holly Grimes MED CARE MANAGER Unavailable Unavailab le Reason for Visit * Reason Comments Medication Refill Encounter Details Date Type Department Care Team (Late st Contact Info) Description 09/18/2020 Refill [facility] - Primary Care - [place] [address] [place] [address] Gloria Martinez MD [address] [place] [address] Medication Refill Social History Tobacco [...] have Coronavirus / COVID-19? No / Unsure 09/21/2020 1:16 PM CDT documented as of this encounter Miscellaneous Notes * Telephone Encounter - Milana Hurt RN - 09/18/2020 3:25 PM CDT Medication failed the protocol, provider to review and approve the medication order if appropriate. Requested Prescriptions Pending Prescriptions Disp Refills albuterol 108 (90 Base) MCG/ACT Aerosol Solution [Pharmacy Med Name: ALBUTEROL HFA INH(200 PUFFS)18GM] 18 g Sig: INHALE 2 PUFFS BY MOUTH EVERY 6 HOURS NEEDED FOR WHEEZING OR COUGH [facility] Pulmonology: Beta Agonists - Albuterol & Levalbuterol Failed - 09/18/2020 3:19 PM Failed - May refill 2 inhalers, 0 refills one time since last office visit. May refill #50 nebulizer vials, 0 refills for albuterol or #48 vials, 0 refills for Xopenex one time since last office visit. Passed - Valid encounter within last 6 months Past Office Visits Recent Outpatient Visits 5 months ago Physical exam, annual (Adult) [facility] Gloria Martinez MD 1 year ago Hypertension, unspecified type [facility] Gloria Richey MD 1 year ago Physical exam, annual (Adult) [facility] Gloria Richey MD 1 year ago Acute exacerbation of chronic obstructive pulmonary disease (COPD) ([facility]) [facility] Gloria Richey MD 2 years ago [facility]ension, unspecified [facility] Upcoming Appointments Future Appointments In 3 days [facility] INSPECTION SUPERVISOR - Recent and Past Visits Recent Visits Date Type Provider Dept 03/23/20 Office Visit Gloria Martinez MD [facility] 08/26/19 Office Visit Gloria Martinez MD [facility] Showing recent visits within past 460 days with a meds authorizing provider and meeting all other requirements Future Appointments Date Type Provider Dept 09/21/20 Appointment Gloria Martinez MD [facility] Showing future appointments within next 90 days with a meds authorizing provider and meeting all other requirements Passed - Last BP in normal range BP Readings from Last 1 Encounters: 03/23/20 112/78 documented in this encounter Plan of Treatment Not on file documented as of this encounter Visit Diagnoses Not on filedocumented in this encounter Additional Health Concerns Assessment Noted Time PHQ-9 Depression Total Score: 0 03/23/20 20 9:00 AM HANDS HANGER documented as of this encounter Care Teams Video Camera Operator Relationship Specialty Start Date End Date Gloria Martinez MD [address] [place] [address] PCP - General Family Medicine 07/09/18 05/29/22 Jen Malave, BUILDING ENERGY CONSULTANT, BRANCH SERVICE ASSOCIATE [address] [place] [address] PCP - General Advanced Practice Nurse 05/30/22 Provider, None [place] PCP - General 11/10/22 08/09/23 Mary Aly, BUILDING ENERGY CONSULTANT, BRANCH SERVICE ASSOCIATE [address] [place] [address] PCP - General Certified Nurse Practitioner 08/10/23 Holly Grimse LSW [place] Route Sales Delivery Drivers Supervisor Linux Systems Engineer 09/06/24 09/11/24 documented as of this encounter
--- OUTSIDE RECORDS SUMMARY | 2024-09-30 14:32 | XMS_ITS | Encounter Summary ---
Author Organization [facility] Address [address] [facility] [place] [address] Phone Care Team Providers Care Database Design Analyst Name Role Phone Gloria Martinez MD Primary Care Provider Jen Malave APRN, [facility] Primary Care Provider Provider, None Primary Care Provider Unavailabigail e Mary Aly APRN, [facility] Primary Care Provider Holly Grimes EVP OF PRODUCTS & CO FOUNDER Unavailable Unavailab le Reason for Visit * Reason Comments Medication Refill Encounter Details Date Type Department Care Team (Late st Contact Info) Description 10/31/2019 [facility] [address] [place] [address] Gloria Martinez MD [address] [place] [address] Medication Refill Social History Tobacco [...] encounter Miscellaneous Notes * Telephone Encounter - Mague Oreilly RN - 11/04/2019 10:49 AM CDT Requested Prescriptions Pending Prescriptions Disp Refills sertraline (ZOLOFT) 50 MG Tablet [Pharmacy Med Name: SERTRALINE 50MG TABLETS] 150 Tab Sig: TAKE 1 TABLET BY MOUTH DAILY Not Delegated - Psychiatry: Antidepressants Failed - 11/02/2019 11:37 AM Failed - This refill cannot be delegated Passed - Valid encounter within last 12 months Past Office Visits Recent Outpatient Visits 2 months ago Hypertension, unspecified type [facility] - Gloria Richey MD 7 months ago Physical exam, annual (Adult) [facility] - Gloria Richey MD 9 months ago Acute exacerbation of chronic obstructive pulmonary disease (COPD) (HCC) [facility] - Gloria Richey MD 1 year ago Hypertension, unspecified type [facility] - Gloria Richey MD 1 year ago Hypertension, unspecified type [facility] - Gloria Richey MD Upcoming Appointments Future Appointments In [address] [facility] [address] [place] In [address] [facility] [address] [place] documented in this encounter Plan of Treatment Not on file documented as of this encounter Visit Diagnoses Diagnosis Depression, unspecified depression type documented in this encounter Additional Health Concerns Assessment Noted Time PHQ-9 Depression Total Score: 0 01/30/20 19 9:00 AM CDT documented as of this encounter Care Teams Database Design Analyst Relationship Specialty Start Date End Date Gloria Martinez MD [address] [place] [address] PCP - General Family Medicine 07/09/18 05/29/22 Jen Malave, TIRE CARE MANAGER, MEDICAL RECRUITER [address] [place] [address] PCP - General Advanced Practice Nurse 05/30/22 Provider, None [place] PCP - General 11/10/22 08/09/23 Mary Aly, TIRE CARE MANAGER, MEDICAL RECRUITER [address] [place] [address] PCP - General Certified Nurse Practitioner 08/10/23 Holly Grimes, MARTINEZ [place] Printing Supervisor Menagerie Superintendent 09/06/24 09/11/24 documented as of this encounter
--- OUTSIDE RECORDS SUMMARY | 2024-09-30 14:32 | XMS_ITS | Encounter Summary ---
Author Organization [facility] Address [address] [place] [address] Phone Care Team Providers Care Cad Detailer Name Role Phone Gloria Martinez MD Primary Care Provider Jen Malave APRN, [facility] Primary Care Provider Provider, None Primary Care Provider UnavailMary Little APRN, [facility] Primary Care Provider + [phone] Holly Grimes LEAD SPRINKLER Unavailable Unavailab le Reason for Visit * Reason Comments Medication Refill Encounter Details Date Type Department Care Team (Late st Contact Info) Description 03/21/2021 Refill [facility] - Primary Care - [place] [address] [place] [address] Gloria Martinez MD [address] [place] [address] Medication Refill Social History Tobacco [...] have Coronavirus / COVID-19? No / Unsure 03/02/2021 1:10 PM AUDIT SPEC documented as of this encounter Miscellaneous Notes * Telephone Encounter - Dee Botello RN - 03/22/2021 12:33 PM CST Medication failed the protocol, provider to review and approve the medication order if appropriate. Requested Prescriptions Pending Prescriptions Disp Refills losartan-hydrochlorothiazide (HYZAAR) 100-12.5 MG Tablet [Pharmacy Med Name: LOSARTAN/HCTZ 100/12.5MG TABLETS] 90 Tablet 2 Sig: Take 1 Tablet by mouth daily. ANGIOTENSIN-II RECEPTOR BLOCKERS-DIURETICS COMBO PROTOCOL Failed - 03/21/2021 5:50 AM Failed - Serum potassium on record in past 12 months POTASSIUM Date Value Ref Range Status 03/17/2020 4.2 3.5 - 5.1 mmol/L Final Failed - Serum sodium on record in past 12 months SODIUM Date Value Ref Range Status 03/17/2020 141 136 - 144 mmol/L Final Failed - GFR on record in past 12 months GFR, EST. NONAFRICAN Date Value Ref Range Status 03/17/2020 59 (L) >=60 Final Passed - BP on record in the past year Clinician-entered: BP Readings from Last 3 Encounters: 12/01/20 120/72 09/21/20 120/72 03/23/20 112/78 Patient-entered: No data recorded Passed - Visit with relevant provider in past year or upcoming 90 days Recent Visits Date Type Provider Dept 12/01/20 Office Visit [facility] MD [facility] 09/21/20 Office Visit Gloria [facility] MD [facility] [employer] 03/23/20 Office Visit Gloria [facility] MD [facility] [employer] Showing recent visits within past 365 days and meeting all other requirements Future Appointments Date Type Provider Dept 04/21/21 Appointment Yvrose Hathaway [facility] 04/30/21 Appointment Gloria Martinez MD [facility] [employer] Showing future appointments within next 90 days and meeting all other requirements T SPEC documented in this encounter Plan of Treatment Not on file documented as of this encounter Visit Diagnoses Diagnosis Hypertension, unspecified type documented in this encounter Additional Health Concerns Assessment Noted Time PHQ-9 Depression Total Score: 0 03/23/20 20 9:00 AM AUDIT SPEC documented as of this encounter Care Teams Cad Detailer Relationship Specialty Start Date End Date Gloria Martinez MD [address] [place] [address] PCP - General Family Medicine 07/09/18 05/29/22 Jen Malave, MANAGER SAFE, IT SECURITY ANALYST [address] [place] [address] PCP - General Advanced Practice Nurse 05/30/22 Provider, None [place] PCP - General 11/10/22 08/09/23 Mary Aly MANAGER SAFE, IT SECURITY ANALYST [address] [place] [address] PCP - General Certified Nurse Practitioner 08/10/23 Holly Grimes LSW [place] Industrial Registered Nurse Carpenter Wooden Tank Erecting 09/06/24 09/11/24 documented as of this encounter
--- OUTSIDE RECORDS SUMMARY | 2024-09-30 14:37 | XMS_ITS | CONTINUITY OF CARE DOCUMENT ---
Author Name david hernandez Address Unknown Organization [facility] Address [address] [place] [address] Phone [phone] Care Team Providers Care Staff Climate Scientist Name Role Phone Jermaine QUINONES, Orquidea Unavailable DARIN QUINONES, TRISH Unavailable DARIN QUINONES, TRISH Unavailable PROBLEMS Condition Status [...] In-person encounter Office Visit Orqu[facility] - In-person encounter Office Visit Orquidea Dean MD [facility] - In-person encounter Office Visit Orquidea Dean MD [facility] Family History of Hypertension:DYSLIPIDEMIA - In-person encounter Office Visit Orquidea Dean MD [facility] - In-person encounter Office Visit Orquidea Dean MD [facility] GAYLE on CPAP - In-person encounter Office Visit Orquidea Dean MD [facility] - In-person encounter Office Visit Orquidea Dean MD [facility] Chest pain-type to be determinedNumbness in both arms and feetTobacco abuse, chewing tobaccoMorbid obesityHTN essentialDepressionVitamin D deficiencyMental retardationOSA on CPAP VITAL SIGNS Date Observation Value Provider Body Mass Index (Ratio) 49.75 kg/m2 Gt Castillo blood pressure, resting [facility] size regular Kr [facility] blood pressure, diastolic 70 mm[Hg] Kr [facility] blood pressure, systolic 140 mm[Hg] Kri [facility] pulse rate 76 /min [facility] oxygen saturation, oximetry 96 % [facility] respiratory rate E&M 18 /min [facility] weight E&M 299 [lb_av] [facility] height E&M 65 [in_i] [facility] Body Mass Index (Ratio) 48.09 kg/m2 Juan Dean MD pulse rate 69 /min [facility] blood pressure, diastolic 88 mm[Hg] [facility], systolic 128 mm[Hg] [facility] saturation, oximetry 97 % [facility] weight E&M 289 [lb_av] [facility] respiratory rate E&M 16 /min Brittan y Block height E&M 65 [in_i] [facility] Body Mass Index (Ratio) [...] MD blood pressure, diastolic 80 mm[Hg] [facility], systolic 118 mm[Hg] Marcus post [facility] oxygen saturation, oximetry 98 % [facility] respiratory rate E&M 16 /min [facility] pulse rate 70 /min [facility] weight E&M 254 [lb_av] [facility] height E&M 65 [in_i] [facility] Body Mass Index (Ratio) 44.59 kg/m2 [...] Bernadine Mcmahon blood pressure, diastolic 68 mm[Hg] Al tavares Mcmahon blood pressure, systolic 118 mm[Hg] [...] 4.8-5.6 0 platelet count 256 X10E3/UL [employer] [phone] red blood cell distribution width 13.0 [...] 0-149 0 cholesterol, serum 178 mg/dL [employer] [phone] alanine aminotransferase (SGPT), serum 17 1/L [...] 3.5-5.2 0 sodium, serum 141 mmol/L [employer] [phone] urea nitrogen/creatinine ratio, serum 9 [employer] [...] High 8 cholesterol, serum 190 mg/dL [employer] [phone]/08/2 8 platelet count 248 X10E3/UL [employer] [phone]/08/2 8 red blood cell distribution width 13.4 [...] 3.5-5.2 8 sodium, serum 142 mmol/L [employer] [phone]/08/2 8 urea nitrogen/creatinine ratio, serum 7 [employer] [...] Pedraza sby smoking, date started 1998 Courtney Stewart smoking history, tot al pack/year 19 Courtney Stewart smoking history, tot al pack/day 1 Courtney Becerraby cigarette use yes Courtney Becerraby smoking status Former smoker Courtney Becerraby social history E&M S moking History: Slim valdez is a former smoker. Orquidea Dean MD social history reviewed E&M revi ewed - no changes required Orquidea Dean MD smoking, year quit 2005 [facility] Block smoking, date started 1998 [facility] Block smoking history, tot al pack/year 19 [...] Cardona smoking history, tot al pack/day 1 Baldwin Cardona cigarette use yes Baldwin Cardona smoking status Former smoker Baldwin Ingr am number of grandchildren Orquidea Dean [...] red green party ID MIRELLA MEDICAID Medicaid [id number] ADVANCE DIRECTIVES Name Date DISCUSSED - NO [...] a stress and an echo done at [facility] at the beginning of this year. [...] EKG Orquidea Dean MD complet ed SNOMED-CT: [id number] Current Medications Documented Orquidea Dean MD completed SNOMED-CT: [id number] Physical Exam, Performed: Pulse Exam of Foot Orquidea Dean MD completed SNOMED-CT: [id number] 853205 Current Medications Documented Orquidea Dean MD completed EKG Orquidea Dean MD complet ed EKG Orquidea Dean MD complet ed
== END 2024-09-30 15:14 | disposition home or self-care (01) ==
PROVIDERS: Emergency Provider Nurse Practitioner Family
DX: S83.92XA Sprain of unspecified site of left knee, initial encounter (principal); X37.1XXA Tornado, initial encounter
CPT/HCPCS: 73564; 99213; G0463